=== PATIENT | male | born 1950 | race African-American/Black ===

== ENCOUNTER 2017-05-16 16:38 | Observation (INO) | payer BC, OTHER ==
[2017-05-16 17:23] VITALS: BMI 48.8
[2017-05-16] MEDS ORDERED: ONDANSETRON 4 MG/2 ML VIAL IVPB ONE (17:26)
[2017-05-16] MEDS ORDERED: morphine CARPU-JECT 4 MG/1 ML DISP.SYRIN IVPUSH ONE (17:26)
[2017-05-16] MEDS ORDERED: LACTATED RINGERS SOLUTION 1000 ML INFUS.BAG IV ONE (17:27)
[2017-05-16] MEDS ORDERED: MAG HYDROX/AL HYDROX/SIMETH 355 ML ORAL.SUSP PO ONE (17:28)
[2017-05-16] MEDS ORDERED: FAMOTIDINE 20 MG/50 ML IVPB 20 MG in PREMIX 50 IVPB ONE (17:28)
--- NOTE | 2017-05-16 17:28 | PDOC ---
History of Present Illness - General History Source: Patient Exam Limitations: No Limitations - History of Present Illness Travel History: Yes Initial Comments: 05/16/17 19:17 Patient is a 67 year old male with a significant past medical history of Afib, HTN, DM, substance abuse of heroin last use in 1970 and ETOH last use in 1995, who presents to the ED with complaints of vomiting that began this morning. Patient reports experiencing multiple episodes of vomiting that began this morning as well as associated intermittent diffuse abdominal pain, prompting him to come into the ED for further evaluation. He reports experiencing constipation that began 2 days ago (last time he passed gas was yesterday). Patient reports experiencing sob when lying flat, that he states is his baseline as well as bilateral leg swelling which is also chronic. Patient states going to [place] last october with similar symptoms and was diagnosed with diverticulitis. Denies chest pain, coughing. Denies diarrhea, dysuria, hematuria. Denies fevers , chills. Denies contact with sick individuals, out of state traveling. Denies trauma to affected area. Denies change in appetite, change in diet. Denies any other symptoms. Allergies: Penicillins Social history: Former smoker. Former alcohol use. Former heroin use. Surgical history: cholecystectomy PMD: Dr. Johnston <Danie Childers - Last Filed: 05/16/17 19:17> <Tamiko Meadows - Last Filed: 05/17/17 19:53> - General Chief Complaint: Pain, Acute Stated Complaint: PAIN Time Seen by Provider: 05/16/17 17:11 Past History - Past Medical History Cardiac Disorders: Yes (ATRIAL FIB) COPD: No Diabetes: Yes HTN: Yes - Surgical History Cardiac Surgery: (abalasion) Orthopedic Surgery: Yes (KNEE REPLACEMENT) - Suicide/Smoking/Psychosocial Hx Smoking History: Current every day smoker Have you smoked in the past 12 months: Yes Number of Cigarettes Smoked Daily: 10 Information on smoking cessation initiated: No 'Breaking Loose' booklet given: 11/02/15 Hx Alcohol Use: No Drug/Substance Use Hx: No Substance Use Type: None Hx Substance Use Treatment: Yes (PT IS TAKING SUBOXONE) <Danie Childers - Last Filed: 05/16/17 19:17> <Tamiko Meadows - Last Filed: 05/17/17 19:53> - Past Medical History Allergies/Adverse Reactions: Allergies Allergy/AdvReac Type Severity Reaction Status Date / Time Penicillins Allergy Mild Rash Verified 11/01/15 18:44 Home Medications: Ambulatory Orders Carvedilol [Coreg] 25 mg PO BID 07/03/14 Furosemide [Lasix -] 40 mg PO DAILY 07/03/14 Pioglitazone HCl/Metformin HCl [Pioglitazone-Metformin 15-500] 1 each PO BID 08/12 Pregabalin [Lyrica -] 75 mg PO DAILY PRN 07/03/14 Cholecalciferol (Vitamin D3) [Vitamin D3] 50,000 unit PO ASDIR 11/01/15 Lubiprostone [Amitiza] 24 mcg PO BID 11/01/15 Docusate Sodium [Colace -] 100 mg PO Q8H PRN #0 capsule 11/07/15 Polyethylene Glycol 3350 [Miralax 119 gm Btl -] 17 gm PO BID bottle 11/07/15 Review of Systems - Review of Systems Able to Perform ROS?: Yes Comments:: 05/16/17 19:17 CONSTITUTIONAL: No reported: Fever, Chills, Diaphoresis, Generalized Weakness, Malaise, Loss of Appetite HEENT: No reported: Rhinorrhea, Nasal Congestion, Throat Pain, Throat Swelling, Difficulty Swallowing, Mouth Swelling, Ear Pain, Eye Pain, Visual Changes CARDIOVASCULAR: No reported: Chest Pain, Syncope, Palpitations, Irregular Heart Rate, Lightheadedness, Peripheral Edema RESPIRATORY: +Sob No reported: Cough, Shortness of Breath, SOB with Exertion, Orthopnea, Wheezing , Stridor, Hemoptysis GASTROINTESTINAL: +Abdominal pain. +vomiting. +Constipation. No reported: Abdominal Distension,, Diarrhea, Melena, Hematochezia GENITOURINARY: No reported: Dysuria, Frequency, Urgency, Hesitancy, Flank Pain, Genital Pain MUSCULOSKELETAL: No reported: Myalgia, Arthralgia, Joint Swelling, Back pain, Neck Pain SKIN: No reported: Rash, Itching, Pallor HEMATOLOGIC/IMMUNOLOGIC: No reported: Easy Bleeding, Easy Bruising, Lymphadenopathy, Frequent infections ENDOCRINE: No reported: Unexplained Weight Gain, Unexplained Weight Loss, Heat Intolerance , Cold Intolerance NEUROLOGIC: No reported: Headache, Focal Weakness, Paresthesias, Vertigo, Lightheadedness, Unsteady Gait, Seizure, Mental Status Changes, Incontinence PSYCHIATRIC: No reported: Anxiety, Depression <Alvarado,Danie - Last Filed: 05/16/17 19:17> *Physical Exam - Vital Signs Last Vital Signs Temp Pulse Resp BP Pulse Ox 97.2 F L 86 16 126/63 99 05/16/17 17:00 05/16/17 17:00 05/16/17 17:00 05/16/17 17:00 05/16/17 17:00 - Physical Exam Comments: 05/16/17 19:17 GENERAL: +Morbidly obese. The patient is awake, alert, and fully oriented, Nontoxic - in no acute distress. HEAD: Normocephalic, atraumatic. EYES: extraocular movements intact, sclera anicteric, conjunctiva clear. ENT: Normal voice, Moist mucous membranes. NECK: Normal range of motion, No JVD LUNGS: Breath sounds equal, clear to auscultation bilaterally. No wheezes, no rhonchi, no rales. HEART: Regular rate and rhythm, normal S1 and S2 without murmur, rub or gallop. ABDOMEN: moderate focal tenderness to epigastrium with a mass palapble in midline Soft, normoactive bowel sounds. No guarding, no rebound. No CVA tenderness EXTREMITIES: Normal range of motion, No clubbing or cyanosis. chronic venous changes and b/l pitting edemam neg homans sign. NEUROLOGICAL: No facial asymmetry, Normal speech, PSYCH: Normal mood, normal affect. SKIN: Warm, Dry, normal turgor. <AlvaradoDanie - Last Filed: 05/16/17 19:17> - Vital Signs Last Vital Signs Temp Pulse Resp BP Pulse Ox 97.2 F L 86 16 126/63 99 05/16/17 17:00 05/16/17 17:00 05/16/17 17:00 05/16/17 17:00 05/16/17 17:00 <Tamiko Meadows - Last Filed: 05/17/17 19:53> Heart Score/ECG Review - ECG Impressions Comment:: 05/16/17 18:47 Twelve-lead EKG was performed and reviewed by me. There is normal sinus rhythm with a normal rate. Rate of 86 The axis is normal. The intervals are normal. There is normal R wave progression T wave inversion in lead 3 <Danie Childers - Last Filed: 05/16/17 19:17> ED Treatment Course - LABORATORY CBC & Chemistry Diagram: 05/16/17 17:45 05/16/17 17:45 <Danie Childers - Last Filed: 05/16/17 19:17> - LABORATORY CBC & Chemistry Diagram: 05/16/17 17:45 05/17/17 10:32 - ADDITIONAL ORDERS Additional order review: Laboratory Results 05/16/17 05/16/17 05/16/17 21:08 20:35 17:45 Sodium 137 Potassium 4.6 Chloride 101 Carbon Dioxide 29 Anion Gap 7 L BUN 15 D Creatinine 0.8 D Creat Clearance w eGFR > 60 Random Glucose 117 H D Calcium 8.2 L Total Bilirubin 0.9 D AST 72 H D ALT 47 D Alkaline Phosphatase 73 Creatine Kinase 250 Creatine Kinase Index 0.9 CK-MB (CK-2) 2.381 Troponin I 0.06 H D Total Protein 8.5 H Albumin 3.2 L Lipase 97 Urine Color Yellow Urine Appearance Clear Urine pH 8.0 D Ur Specific [place] 1.018 Urine Protein 2+ H Urine Glucose (UA) Negative Urine Ketones 1+ H Urine Blood Negative Urine Nitrite Negative Urine Bilirubin Negative Urine Urobilinogen 4.0 e.u/dl Ur Leukocyte Esterase Negative Urine WBC (Auto) 1 Urine RBC (Auto) 3 Ur Epithelial Cells Rare Urine Mucus Few 05/16/17 17:45 RBC 4.74 MCV 85.9 MCHC 32.6 RDW 13.8 MPV 10.0 D Neutrophils % 66.0 Lymphocytes % 26.2 D Monocytes % 6.9 Eosinophils % 0.1 Basophils % 0.8 - Medications Given in the ED: ED Medications Discontinued Medications Generic Name Dose Route Start Last Admin Trade Name Lucho PRN Reason Stop Dose Admin Acetaminophen 1,000 mg 05/16/17 20:46 05/16/17 20:58 Ofirmev Injection - IVPB 05/16/17 20:47 1,000 mg ONCE ONE Administration Al Hydroxide/Mg Hydroxide 30 ml 05/16/17 17:28 05/16/17 18:10 Mylanta Suspension - PO 05/16/17 17:29 30 ml ONCE ONE Administration Famotidine/Sodium Chloride 20 50 mls @ 100 mls/hr 05/16/17 17:28 05/16/17 18: 10 mg/ Miscellaneous IVPB 05/16/17 17:57 100 mls/hr ONCE ONE Administration Lactated Ringer's 1,000 ml 05/16/17 17:27 05/16/17 18:09 Lactated Ringers Solution IV 05/16/17 17:28 1,000 ml NOW ONE Administration Metoclopramide HCl 10 mg 05/16/17 20:25 05/16/17 20:41 Reglan Injection - IVPUSH 05/16/17 20:26 10 mg ONCE ONE Administration Midazolam HCl 2 mg 05/16/17 23:51 05/17/17 00:31 Versed - IVPUSH 05/16/17 23:52 2 mg ONCE ONE Administration Morphine Sulfate 4 mg 05/16/17 17:26 05/16/17 18:09 Morphine Injection - IVPUSH 05/16/17 17:27 4 mg ONCE ONE Administration Ondansetron HCl 4 mg 05/16/17 17:26 05/16/17 18:09 Zofran Injection IVPB 05/16/17 17:27 4 mg ONCE ONE Administration Pantoprazole Sodium 80 mg 05/16/17 20:24 05/16/17 20:41 Protonix Iv IVPUSH 05/16/17 20:25 80 mg ONCE ONE Administration <Tamiko Meadows - Last Filed: 05/17/17 19:53> Medical Decision Making - Medical Decision Making 05/16/17 17:25 67y M hx of morbid obesity, afib, dm, htn, substance abuse presents with abdmoinal pain. Pt notes that symptmos started this morning, vomiting that is clear in color without bilious/blood/coffee grounds, denies any fever/chills, diarrhea, dysuria. on exam the pt is actively vomiting, and appears uncomfortable he has mild tenderness on his abd that seems worse int he epigastrium, but due to his panus difficult to exactly localize his pain pt notes that he was dx with diverticulitis in october when he last had this pain. last BM 2 days ago, consider obstruction prior surgery of cholecystectomy ddx: gastritis, pancreatitits, acs, obstruciton A portion of this note was documented by scribe services under my direction. I have reviewed the details of the note, within reason, and agree with the documentation with the following case summary and management plan written by me 05/16/17 19:14 labs obtained unremarkble will obtain abd cT to r/o hernia case signed out to dr. meadows to fu with CT and reassess the pt <Danie Childers - Last Filed: 05/16/17 19:17> - Medical Decision Making 05/17/17 00:35 I received pt on signout. We added on cardiac enzymes on the patient, and he has a positive troponin. He will get ASA and we will admit him to tele unit. Pt will also get a repeat EKG. 05/17/17 01:47 2nd cardiac enzyme is epending. 2nd EKH is NSR; inferior flipped flat Ts. 05/17/17 01:55 Patient Name: MARIJA PAIGE THIS IS A PRELIMINARY REPORT FROM [facility] DATE OF SERVICE: 2017-05-17 00:14:46 IMAGES: [id number] EXAM: ABDOMEN \T\ PELVIS CT WITH VASCULAR CONTR HISTORY: Hernia COMPARISON: None. FINDINGS: Abdomen Liver: Normal Spleen: Normal Pancreas: Normal Gallbladder: Not seen Stomach: There is a lap band surrounding the proximal stomach Small bowel: Segment of proximal small bowel distended with dynamic fluid levels. There is a focal transition in the appearance and caliber of the small bowel associated with a paraumbilical midline ventral hernia (image 118). Large bowel: Normal Appendix: Normal Adrenals:There is a 2.0 x 1.1 cm indeterminate left adrenal mass Kidneys: Normal Vascular: Normal Lymphatic: Normal Peritoneal: No free peritoneal air or fluid Pelvis: Prostate: normal Rectum: Normal Bladder: Normal The inferior thorax: Normal General: Skeletal: Normal Abdominal wall: There is a midline periumbilical ventral hernia containing non- obstructed segment of small bowel. IMPRESSION: Small bowel obstruction associated with a paraumbilical hernia Indeterminate left adrenal mass likely reflects an adenoma. Confirmation of stability recommended. Lap band THIS DOCUMENT HAS BEEN ELECTRONICALLY SIGNED 05/17/17 02:09 2nd cardiac enzyme is normal 05/17/17 03:11 Pt will be admitted to the hospitalist for Obs and surgical evaluation. 05/17/17 19:50 I have returned for another shift, and patient is still in the ER. The decision was made by our surgical nurse practitioner to transfer the patient to [facility] to [facility] surgical services Dr. Andrea Mcpherson accepted the patient. I gave report to Dr. Lalito Lambert in the ER, as this will be an ER to ER transfer.[facility] is setting up transfer for the patient. <Tamiko Meadows - Last Filed: 05/17/17 19:53> *DC/Admit/Observation/Transfer <Danie Childers - Last Filed: 05/16/17 19:17> - Discharge Dispostion Admit: Yes <Tamiko Meadows - Last Filed: 05/17/17 19:53> Diagnosis at time of Disposition: Small bowel obstruction, Ventral hernia with bowel obstruction - Discharge Dispostion Condition at time of disposition: Guarded
[2017-05-16] MEDS ORDERED: MORPHINE SULFATE 10 MG/1 ML *VIAL ONE (17:57)
[2017-05-16] MEDS ORDERED: ONDANSETRON 4 MG/2 ML VIAL ONE (17:57)
[2017-05-16] MEDS ORDERED: FAMOTIDINE 20 MG/50 ML IVPB 20 MG/50 ML MG IVPB ONE (17:57)
[2017-05-16] MEDS ORDERED: MAG HYDROX/AL HYDROX/SIMETH 30 ML UNIT-DOSE CUP ONE (17:57)
[2017-05-16 17:58] LABS: BASO % 0.8 % (0-2.0); EOS % 0.1 % (0-4.5); HEMATOCRIT 40.7 % (35.4-49); HEMOGLOBIN 13.3 GM/dL (11.7-16.9); LYMPH % 26.2 % (8-40); MCHC 32.6 g/dl (32.0-35.9); MEAN CELL VOLUME 85.9 fl (80-96); MONO % 6.9 % (3.8-10.2); RBC 4.74 M/mm3 (4.00-5.60); RDW 13.8 % (11.9-15.9); WHITE BLOOD COUNT 3.6 K/mm3 (4.0-10.0)
[2017-05-16 18:32] LABS: PLATELET COUNT 121 K/MM3 (134-434); PLATELET ESTIMATE DECREASED
[2017-05-16 18:37] LABS: ALBUMIN 3.2 g/dl (3.4-5.0); ALK PHOS 73 U/L (45-117); ANION GAP 7 (8-16); BILIRUBIN,TOTAL 0.9 mg/dL (0.2-1.0); BLOOD UREA NITROGEN 15 mg/dL (7-18); CALCIUM 8.2 mg/dL (8.5-10.1); CHLORIDE 101 mmol/L (98-107); CO2 29 mmol/L (21-32); CREATININE 0.8 mg/dL (0.7-1.3); GLUCOSE,RANDOM 117 mg/dL (74-106); LIPASE 97 U/L (73-393); SGPT/ALT 47 U/L (12-78); SODIUM 137 mmol/L (136-145); TOT PROT 8.5 g/dl (6.4-8.2)
[2017-05-16 18:40] LABS: POTASSIUM 4.6 mmol/L (3.5-5.1); SGOT/AST 72 U/L (15-37)
[2017-05-16] MEDS ORDERED: PANTOPRAZOLE SODIUM 40 MG VIAL IVPUSH ONE (20:24)
[2017-05-16] MEDS ORDERED: METOCLOPRAMIDE HCL INJECTION 10 MG/2 ML VIAL IVPUSH ONE (20:25)
[2017-05-16] MEDS ORDERED: METOCLOPRAMIDE HCL INJECTION 10 MG/2 ML VIAL ONE (20:27)
[2017-05-16] MEDS ORDERED: PANTOPRAZOLE SODIUM 40 MG VIAL ONE (20:27)
[2017-05-16] MEDS ORDERED: ACETAMINOPHEN 1000 MG/100 ML VIAL (NON FORMULARY) IVPB ONE (20:46)
[2017-05-16 22:07] LABS: URINE APPEARANCE CLEAR; URINE BILIRUBIN NEGATIVE (NEGATIVE); URINE BLOOD NEGATIVE (NEGATIVE); URINE COLOR YELLOW; URINE GLUCOSE (UA) NEGATIVE (NEGATIVE); URINE KETONE 1+ (NEGATIVE); URINE LEUK ESTERASE NEGATIVE (NEGATIVE); URINE NITRITE NEGATIVE (NEGATIVE); URINE UROBILINOGEN 4.0 E.U/dl mg/dL (0.2-1.0)
[2017-05-16 22:10] LABS: EPI CELLS RARE /HPF (FEW); URINE MUCUS FEW; URINE PROTEIN 2+ (NEGATIVE)
[2017-05-16] MEDS ORDERED: MIDAZOLAM HCL 2 MG/2 ML SINGLE DOSE VIAL ONE (23:51)
[2017-05-16] MEDS ORDERED: MIDAZOLAM HCL 2 MG/2 ML SINGLE DOSE VIAL IVPUSH ONE (23:51)
[2017-05-17] MEDS ORDERED: ASPIRIN 81 MG CHEWABLE TABLETS PO ONE (00:33)
[2017-05-17] MEDS ORDERED: ASPIRIN 325 MG TABLET ONE (01:02)
[2017-05-17] MEDS ORDERED: POLYETHYLENE GLYCOL 3350 119 GM BTL PO ONE (02:59)
--- NOTE | 2017-05-17 05:55 | HP ---
CHIEF COMPLAINT: abdominal pain and vomiting PCP:Dr Mauricio HISTORY OF PRESENT ILLNESS: The patient is a 67 year old male with a significant past medical history of diverticulitis, A fib, HTN, DM, who presents to the ED with complaints of multiple episodes of vomiting that began in the morning. He states that it was non bloody, non bilious. He is also complaining of intermittent diffuse abdominal pain, and no BMs for 3 days, last time he passed gas was yesterday. Patient reports experiencing sob when lying flat, that he states is his baseline as well as bilateral leg swelling that is present for long time. The pt has a vhistory of diverticulitis last year. He denies chest pain, coughing, fever, chills. He denies diarrhea, melena, dysuria, hematuria, changing dietary habits. ER course was notable for: (1)CBC, BMP (2)CT abdomen/pelis (3) Recent Travel:no PAST MEDICAL HISTORY: as above PAST SURGICAL HISTORY: cholecystectomy, knee replacement Social History: Smoking:no, former smoker Alcohol:ETOH last use in 1995 Drugs: heroin last use in 1970 Family History: Allergies Penicillins Allergy (Mild, Verified 11/01/15 18:44) Rash HOME MEDICATIONS: Home Medications Medication Instructions Recorded Carvedilol [Coreg] 25 mg PO BID 07/03/14 Furosemide [Lasix -] 40 mg PO DAILY 07/03/14 Pioglitazone HCl/Metformin HCl 1 each PO BID 07/03/14 [Pioglitazone-Metformin 15-500] Pregabalin [Lyrica -] 75 mg PO DAILY PRN 07/03/14 Cholecalciferol (Vitamin D3) 50,000 unit PO ASDIR 11/01/15 [Vitamin D3] Lubiprostone [Amitiza] 24 mcg PO BID 11/01/15 Docusate Sodium [Colace -] 100 mg PO Q8H PRN #0 capsule 11/07/15 Polyethylene Glycol 3350 [Miralax 17 gm PO BID bottle 11/07/15 119 gm Btl -] REVIEW OF SYSTEMS CONSTITUTIONAL: Absent: fever, chills, diaphoresis, generalized weakness, malaise, loss of appetite, weight change HEENT: Absent: rhinorrhea, nasal congestion, throat pain, throat swelling, difficulty swallowing, mouth swelling, ear pain, eye pain, visual changes CARDIOVASCULAR: peripheral edema Absent: chest pain, syncope, palpitations, irregular heart rate, lightheadedness , RESPIRATORY: Absent: cough, shortness of breath, dyspnea with exertion, orthopnea, wheezing, stridor, hemoptysis GASTROINTESTINAL:abdominal pain, nausea, vomiting, Absent: abdominal distension, diarrhea, constipation, GENITOURINARY: Absent: dysuria, frequency, urgency, hesitancy, hematuria, MUSCULOSKELETAL: Absent: myalgia, arthralgia, joint swelling, back pain, neck pain SKIN: Absent: rash, itching, pallor ENDOCRINE: Absent: unexplained weight gain, unexplained weight loss, heat intolerance, cold intolerance NEUROLOGIC: Absent: headache, focal weakness or paresthesias, dizziness, unsteady gait, PSYCHIATRIC: Absent: anxiety, depression, suicidal or homicidal ideation, hallucinations. PHYSICAL EXAMINATION Vital Signs - 24 hr 05/16/17 17:00 Temperature 97.2 F L Pulse Rate 86 Respiratory 16 Rate Blood Pressure 126/63 O2 Sat by Pulse 99 Oximetry (%) GENERAL: Awake, alert, and fully oriented, in no acute distress, sitting in a chair. HEAD: Normal with no signs of trauma. EYES: Pupils equal, round and reactive to light, extraocular movements intact, sclera anicteric, conjunctiva clear. No lid lag. EARS, NOSE, THROAT: Ears normal, nares patent, oropharynx clear without exudates. Moist mucous membranes. NECK: Normal range of motion, supple without lymphadenopathy, JVD, or masses. LUNGS: Breath sounds equal, clear to auscultation bilaterally. No wheezes, and no crackles. No accessory muscle use. HEART: Regular rate and rhythm, normal S1 and S2 without murmur, rub or gallop. ABDOMEN: Obese, soft, mild diffuse tenderness, hypooactive bowel sounds, no guarding, no rebound, no masses. MUSCULOSKELETAL: Normal range of motion at all joints. No bony deformities or tenderness. UPPER EXTREMITIES: 2+ pulses, warm. No peripheral edema. LOWER EXTREMITIES: 2+ pulses, warm. 2+ peripheral edema. NEUROLOGICAL: Normal speech. Gait not observed. PSYCHIATRIC: Cooperative. Good eye contact. SKIN: Warm, dry, normal turgor, no rashes. Laboratory Results - last 24 hr 05/16/17 05/16/17 05/16/17 17:45 17:45 20:35 WBC 3.6 L D RBC 4.74 Hgb 13.3 Hct 40.7 MCV 85.9 MCH 28.0 MCHC 32.6 RDW 13.8 Plt Count 121 L MPV 10.0 D Neutrophils % 66.0 Lymphocytes % 26.2 D Monocytes % 6.9 Eosinophils % 0.1 Basophils % 0.8 Platelet Estimate Decreased Platelet Comment Rare giant plts Sodium 137 Potassium 4.6 Chloride 101 Carbon Dioxide 29 Anion Gap 7 L BUN 15 D Creatinine 0.8 D Creat Clearance w eGFR > 60 Random Glucose 117 H D Calcium 8.2 L Total Bilirubin 0.9 D AST 72 H D ALT 47 D Alkaline Phosphatase 73 Creatine Kinase 250 Creatine Kinase Index 0.9 CK-MB (CK-2) 2.381 Troponin I 0.06 H D Total Protein 8.5 H Albumin 3.2 L Lipase 97 Urine Color Urine Appearance Urine pH Ur Specific [place] Urine Protein Urine Glucose (UA) Urine Ketones Urine Blood Urine Nitrite Urine Bilirubin Urine Urobilinogen Ur Leukocyte Esterase Urine WBC (Auto) Urine RBC (Auto) Ur Epithelial Cells Urine Mucus 05/16/17 05/17/17 21:08 00:57 WBC RBC Hgb Hct MCV MCH MCHC RDW Plt Count MPV Neutrophils % Lymphocytes % Monocytes % Eosinophils % Basophils % Platelet Estimate Platelet Comment Sodium Potassium Chloride Carbon Dioxide Anion Gap BUN Creatinine Creat Clearance w eGFR Random Glucose Calcium Total Bilirubin AST ALT Alkaline Phosphatase Creatine Kinase 203 Creatine Kinase Index 1.4 CK-MB (CK-2) 2.893 Troponin I 0.04 D Total Protein Albumin Lipase Urine Color Yellow Urine Appearance Clear Urine pH 8.0 D Ur Specific [place] 1.018 Urine Protein 2+ H Urine Glucose (UA) Negative Urine Ketones 1+ H Urine Blood Negative Urine Nitrite Negative Urine Bilirubin Negative Urine Urobilinogen 4.0 e.u/dl Ur Leukocyte Esterase Negative Urine WBC (Auto) 1 Urine RBC (Auto) 3 Ur Epithelial Cells Rare Urine Mucus Few ASSESSMENT/PLAN: The patient is a 67 year old male with a significant past medical history of diverticulitis, A fib, HTN, DM, who presents to the ED with complaints of multiple episodes of vomiting that began in the morning. He is admitted for SBO. \ Abdominal pain and vomiting: -based on CT abdomen/pelvis he has SBO -will f/u surgery recommendations -type and screen coags -NPO -LR at rate 75 cc/hr DM: -BGM ACHS -ISS ACHS A.Fib: not on meds Edema: -continue Lasix HTN: -cont Coreg DVT PPX: Heparin 5000 u SQ ITD -SCDs F/E/N: LR/no changes/NPO Disposition: med surg Problem List - Problem (1) Small bowel obstruction Code(s): K56.609 - UNSP INTESTNL OBST, UNSP TO PARTIAL VERSUS COMPLETE OBST (2) Ventral hernia with bowel obstruction Code(s): K43.6 - OTHER AND UNSP VENTRAL HERNIA WITH OBSTRUCTION, W/O GANGRENE (3) Atrial fibrillation with tachycardic ventricular rate Code(s): I48.91 - UNSPECIFIED ATRIAL FIBRILLATION (4) Diabetes Code(s): E11.9 - TYPE 2 DIABETES MELLITUS WITHOUT COMPLICATIONS (5) HTN (hypertension) Code(s): I10 - ESSENTIAL (PRIMARY) HYPERTENSION (6) Morbid obesity Code(s): E66.01 - MORBID (SEVERE) OBESITY DUE TO EXCESS CALORIES (7) Opiate dependence Code(s): F11.20 - OPIOID DEPENDENCE, UNCOMPLICATED Visit type - Emergency Visit Emergency Visit: Yes ED Registration Date: 05/17/17 Care time: The patient presented to the Emergency Department on the above date and was hospitalized for further evaluation of their emergent condition. - New Patient This patient is new to me today: Yes Date on this admission: 05/17/17 - Critical Care Critical Care patient: No
[2017-05-17] MEDS ORDERED: HEPARIN NA (PORCINE) 5,000 UNITS/ML 1ML VIAL ONE (06:09)
--- NOTE | 2017-05-17 06:10 | PN ---
Teaching Attending Note Name of Resident: Eleanor Hanna ATTENDING PHYSICIAN STATEMENT I saw and evaluated the patient. Chart, data, imaging reviewed. I reviewed the resident's note and discussed the case with the resident. I agree with the resident's findings and plan as documented. SUBJECTIVE: 67 year old male with a significant past medical history of Afib, HTN, DM, diverticulitis last October, Hx of substance abuse with heroin , etoh in the past , presented with nausea, vomiting that began 05/16 in the morning. Patient c/o some mild abdominal pain as well. Last reported BM was 2 days ago and he passes gas 1 day ago. Treated for diverticulitis last october. CT of abdomen//pelvis showed mild small bowel obstruction. OBJECTIVE: Last Vital Signs Temp Pulse Resp BP Pulse Ox 97.2 F L 86 16 126/63 99 05/16/17 17:00 05/16/17 17:00 05/16/17 17:00 05/16/17 17:00 05/16/17 17:00 General -NAD, appears comfortable, morbidly obese HEENT- at, nc, oral mucosa moist neck -supple CV-s1+s2+ RRR Chest b/l air entry sounds Abdomen - morbidly obese, BS decreased skin- chronic venous stasis changes in lower extremities Abnormal Lab Results 05/16/17 05/16/17 05/16/17 17:45 17:45 20:35 WBC 3.6 L D Plt Count 121 L Anion Gap 7 L Random Glucose 117 H D Calcium 8.2 L AST 72 H D Troponin I 0.06 H D Total Protein 8.5 H Albumin 3.2 L Urine Protein Urine Ketones 05/16/17 21:08 WBC Plt Count Anion Gap Random Glucose Calcium AST Troponin I Total Protein Albumin Urine Protein 2+ H Urine Ketones 1+ H CT of abdomen/pelvis- mild small bowel obstruction with paraumbilical hernia ASSESSMENT AND PLAN: #Mild small bowel obstruction with paraumbilical hernia -no clinical evidence of acute abdomen. -admit to observation -IV fluid hydration -zofran PRN for nausea/vomiting -replace electrolytes prn -tylenol prn for pain control -surgery evaluation for possible intervention #DVT ppx -heparin sc
[2017-05-17] MEDS ORDERED: LACTATED RINGERS SOLUTION 1,000 ML/1,000 ML INFUS.BAG IV SCH (06:15)
[2017-05-17] MEDS: HEPARIN NA (PORCINE) 5,000 UNITS/ML 1ML VIAL SQ SCH ×2 (06:23→15:10)
[2017-05-17] MEDS: INSULIN SLIDING SCALE (NOVOLOG) 1 VIAL SQ SCH ×3 (07:00→17:15)
[2017-05-17] MEDS: CARVEDILOL 25 MG TABLET (FP) PO SCH ×2 (09:02→22:59)
[2017-05-17] MEDS ORDERED: FUROSEMIDE 40 MG TABLET (FP) PO SCH (10:00)
[2017-05-17 10:57] LABS: INR 1.18 (0.82-1.09); PROTHROMBIN TIME (PATIENT) 13.3 SEC (9.98-11.88)
[2017-05-17 11:00] LABS: ACTIVATED PTT 33.2 SECONDS (26.9-34.4)
[2017-05-17 11:16] LABS: ANION GAP 8 (8-16); BLOOD UREA NITROGEN 14 mg/dL (7-18); CALCIUM 8.3 mg/dL (8.5-10.1); CHLORIDE 100 mmol/L (98-107); CO2 28 mmol/L (21-32); CREATININE 0.9 mg/dL (0.7-1.3); GLUCOSE,RANDOM 114 mg/dL (74-106); MAGNESIUM 1.9 mg/dL (1.8-2.4); POTASSIUM 4.3 mmol/L (3.5-5.1); SGOT/AST 55 U/L (15-37); SGPT/ALT 43 U/L (12-78); SODIUM 136 mmol/L (136-145); TOT PROT 8.3 g/dl (6.4-8.2)
[2017-05-17 11:17] LABS: ALK PHOS 72 U/L (45-117)
--- NOTE | 2017-05-17 12:15 | EKG ---
Test Reason : Blood Pressure : / mmHG Vent. Rate : 096 BPM Atrial Rate : 096 BPM P-R Int : 172 ms QRS Dur : 094 ms QT Int : 364 ms P-R-T Axes : 068 -01 007 degrees QTc Int : 459 ms POOR DATA QUALITY, INTERPRETATION MAY BE ADVERSELY AFFECTED NORMAL SINUS RHYTHM MINIMAL VOLTAGE CRITERIA FOR LVH, MAY BE NORMAL VARIANT BORDERLINE ECG WHEN COMPARED WITH ECG OF 16-MAY-2017 17:50, NO SIGNIFICANT CHANGE WAS FOUND Confirmed by GIOVANNY PAN MD ([id number]) on 05/17/2017 12:15:21 PM Referred By: Confirmed By:GIOVANNY PAN MD
--- NOTE | 2017-05-17 12:15 | EKG ---
Test Reason : Blood Pressure : / mmHG Vent. Rate : 086 BPM Atrial Rate : 086 BPM P-R Int : 168 ms QRS Dur : 096 ms QT Int : 394 ms P-R-T Axes : 033 -06 003 degrees QTc Int : 471 ms NORMAL SINUS RHYTHM MINIMAL VOLTAGE CRITERIA FOR LVH, MAY BE NORMAL VARIANT BORDERLINE ECG WHEN COMPARED WITH ECG OF 02-NOV-2015 01:20, SINUS RHYTHM HAS REPLACED ATRIAL FLUTTER Confirmed by VIVIANE GONZALEZ, GIOVANNY ([id number]) on 05/17/2017 12:14:54 PM Referred By: Confirmed By:GIOVANNY PAN MD
[2017-05-17 14:56] LABS: COCAINE, UR NEGATIVE ng/ml (CUTOFF=300); METHADONE, UR NEGATIVE ng/ml (CUTOFF=300); OPIATES, URI NEGATIVE ng/ml (CUTOFF=300); PHENCYCLIDINE,URINE NEGATIVE ng/ml (CUTOFF=25); URINE AMPHETAMINES NEGATIVE ng/ml (CUTOFF=500); URINE BARBITURATES NEGATIVE ng/ml (CUTOFF=200); URINE BENZODIAZEPINES NEGATIVE ng/ml (CUTOFF=200)
--- NOTE | 2017-05-17 15:58 | CONSULT ---
Consult Consult Specialty:: General Surgery Referred by:: Dr. house Reason for Consultation:: abdominal pain - History of Present Illness Chief Complaint: Hernia with SBO History of Present Illness: 67yo male HTN, DM type 2, Morbid obesity s/p Lap band presented to the ED with abdominal pain and nausea. Has not had a normal bowel movement in 3 days. He is passing flatus. He has been having dry heaving with out significant emesis. Currently being evaluated at [facility] for Bariatic revision surgery. Laparoscopic band surgery in [place] 9 years ago. We were asked to assess. 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) - Smoking History Smoking history: Current every day smoker Have you smoked in the past 12 months: Yes Aproximately how many cigarettes per day: 10 - Social History ADL: Independent 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 [employer] History of Recent Travel: No Home Medications - Allergies Allergies/Adverse Reactions: Allergies Allergy/AdvReac Type Severity Reaction Status Date / Time Penicillins Allergy Mild Rash Verified 11/01/15 18:44 - Home Medications Home Medications: Ambulatory Orders Carvedilol [Coreg] 25 mg PO BID 07/03/14 Furosemide [Lasix -] 40 mg PO DAILY 07/03/14 Pioglitazone HCl/Metformin HCl [Pioglitazone-Metformin 15-500] 1 each PO BID 08/12 Pregabalin [Lyrica -] 75 mg PO DAILY PRN 07/03/14 Cholecalciferol (Vitamin D3) [Vitamin D3] 50,000 unit PO ASDIR 11/01/15 Lubiprostone [Amitiza] 24 mcg PO BID 11/01/15 Docusate Sodium [Colace -] 100 mg PO Q8H PRN #0 capsule 11/07/15 Polyethylene Glycol 3350 [Miralax 119 gm Btl -] 17 gm PO BID bottle 11/07/15 Review of Systems - Review of Systems Constitutional: denies: Chills, Fever Eyes: denies: Blurred Vision, Recent Change in Vision HENT: denies: Difficult Swallowing Neck: denies: Lumps, Tenderness Cardiovascular: denies: Chest Pain, Palpitations Respiratory: denies: Cough, SOB Gastrointestinal: reports: Abdominal Pain, Constipation, Vomiting Genitourinary: denies: Discharge, Dysuria, Flank Pain Musculoskeletal: reports: Back Pain. denies: Muscle Pain, Muscle Cramps Integumentary: denies: Lump, Rash Endocrine: reports: Unexplained Weight Gain. denies: Excessive Sweating, Increased Hunger Hematology/Lymphatic: denies: Easily Bruised, Excessive Bleeding Psychiatric: denies: Anxiety, Depression Physical Exam Vital Signs: Vital Signs Temperature 98 F 05/17/17 04:28 Pulse Rate 81 05/17/17 12:27 Respiratory Rate 19 05/17/17 04:28 Blood Pressure 131/72 05/17/17 12:27 O2 Sat by Pulse Oximetry (%) 97 05/17/17 12:27 Vital Signs Period Temp Pulse Resp BP Sys/Sr Pulse Ox Last 24 Hr 98 F 70-88 19 126-143/72-79 95-97 Constitutional: Yes: No Distress, Calm, Obese Eyes: Yes: Conjunctiva Clear, EOM Intact HENT: Yes: Atraumatic, Normocephalic Neck: Yes: Supple, Trachea Midline Cardiovascular: Yes: Regular Rate and Rhythm, S1, S2 Respiratory: Yes: Regular, CTA Bilaterally Gastrointestinal: Yes: Soft, Abdomen, Obese, Hernia (periumbilcal hernia incarcerted will not stay reduced), Hyperactive Bowel Sounds, Tenderness ( infraumbilical, lower midline). No: Tenderness, Epigastrium, Tenderness, Rebound ...Rectal Exam: Yes: Deferred Renal/: No: CVA Tenderness - Left, CVA Tenderness - Right Extremities: No: Cool, Cyanosis Integumentary: No: Jaundice, Rash Wound/Incision: Yes: Clean/Dry, Well Approximated Neurological: Yes: Alert, Oriented Psychiatric: Yes: Alert, Oriented Labs: CBC, BMP 05/16/17 17:45 05/17/17 10:32 Imaging - Results Cat Scan: Report Reviewed, Image Reviewed (incarcerate umbilical port site hernia with small bowel) Problem List - Problems (1) Ventral hernia with bowel obstruction Assessment/Plan: 67yo male with MMP Morbid obesity BMI~50 s/p lap band 9 years ago. Now with an Incarcerated umbilical hernia port site with small bowel obstruction seen on CT scan. no peritoneal signs. WBC 3.6, lactic acid pending. NPO and IVF hydration Empiric IV antibiotics Adequate analgesia Transfer to a center with bariatric surgeon Dr. La preferably [facility] is accepting Thank you for the opportunity to participate in the care of this patient. Code(s): K43.6 - OTHER AND UNSP VENTRAL HERNIA WITH OBSTRUCTION, W/O GANGRENE (2) Small bowel obstruction Code(s): K56.609 - UNSP INTESTNL OBST, UNSP TO PARTIAL VERSUS COMPLETE OBST (3) Diabetes Code(s): E11.9 - TYPE 2 DIABETES MELLITUS WITHOUT COMPLICATIONS (4) HTN (hypertension) Code(s): I10 - ESSENTIAL (PRIMARY) HYPERTENSION (5) Morbid obesity Code(s): E66.01 - MORBID (SEVERE) OBESITY DUE TO EXCESS CALORIES
[2017-05-17] MEDS ORDERED: ACETAMINOPHEN 1000 MG/100 ML VIAL (NON FORMULARY) IVPB ONE (16:49)
[2017-05-17] MEDS ORDERED: ACETAMINOPHEN INJECTION 100 ML IVPB ONE (17:06)
[2017-05-17] MEDS ORDERED: MORPHINE SULFATE 10 MG/1 ML *VIAL ONE ×2 (17:36→23:04)
[2017-05-17] MEDS ORDERED: FAMOTIDINE 20 MG/50 ML IVPB 20 MG/50 ML MG IVPB ONE (17:37)
[2017-05-17] MEDS ORDERED: morphine CARPU-JECT 2 MG/1 ML DISP.SYRIN IVPUSH ONE ×2 (18:01→23:11)
[2017-05-17] MEDS ORDERED: FAMOTIDINE IV 20 MG/12 ML VIAL IVPUSH ONE ×2 (18:01→18:03)
[2017-05-17 20:29] VITALS: BP 146/80; PULSE 80; TEMP 97.5
--- NOTE | 2017-05-17 22:22 | HOSP ---
Subjective - Review of Symptoms Events since last encounter: Patient is seen and examined, discussed with the surgeon and arrangement are made to Transfer the patient to [facility], Patient is accepted by . Patient is NPO since was found to have SBO with incarcerated Hernia. is consulted , agrees with the transfer, who discussed with the surgeon at [facility]. Vital Signs Temperature 97.5 F L 05/17/17 20:27 Pulse Rate 80 05/17/17 20:27 Respiratory Rate 20 05/17/17 20:27 Blood Pressure 146/80 05/17/17 20:27 O2 Sat by Pulse Oximetry (%) 95 05/17/17 16:27 CBCD WBC 3.6 K/mm3 (4.0-10.0) L D 05/16/17 17:45 RBC 4.74 M/mm3 (4.00-5.60) 05/16/17 17:45 Hgb 13.3 GM/dL (11.7-16.9) 05/16/17 17:45 Hct 40.7 % (35.4-49) 05/16/17 17:45 MCV 85.9 fl (80-96) 05/16/17 17:45 MCHC 32.6 g/dl (32.0-35.9) 05/16/17 17:45 RDW 13.8 % (11.9-15.9) 05/16/17 17:45 Plt Count 121 K/MM3 (134-434) L 05/16/17 17:45 MPV 10.0 fl (7.5-11.1) D 05/16/17 17:45 CMP Sodium 136 mmol/L (136-145) 05/17/17 10:32 Potassium 4.3 mmol/L (3.5-5.1) 05/17/17 10:32 Chloride 100 mmol/L (98-107) 05/17/17 10:32 Carbon Dioxide 28 mmol/L (21-32) 05/17/17 10:32 Anion Gap 8 (8-16) 05/17/17 10:32 BUN 14 mg/dL (7-18) 05/17/17 10:32 Creatinine 0.9 mg/dL (0.7-1.3) 05/17/17 10:32 Creat Clearance w eGFR > 60 (>60) 05/17/17 10:32 Random Glucose 114 mg/dL (74-106) H 05/17/17 10:32 Calcium 8.3 mg/dL (8.5-10.1) L 05/17/17 10:32 Total Bilirubin 1.0 mg/dL (0.2-1.0) 05/17/17 10:32 AST 55 U/L (15-37) H D 05/17/17 10:32 ALT 43 U/L (12-78) 05/17/17 10:32 Alkaline Phosphatase 72 U/L (45-117) 05/17/17 10:32 Total Protein 8.3 g/dl (6.4-8.2) H 05/17/17 10:32 Albumin 3.0 g/dl (3.4-5.0) L 05/17/17 10:32 CARDIAC ENZYMES Creatine Kinase 203 IU/L (39-308) 05/17/17 00:57 Troponin I 0.04 ng/ml (0.00-0.05) D 05/17/17 00:57 Current Medications Generic Name Dose Route Start Last Admin Trade Name Freq PRN Reason Stop Dose Admin Carvedilol 25 mg 05/17/17 10:00 05/17/17 09:02 Coreg - PO 25 mg BID MIGUEL ÁNGEL Administration Furosemide 40 mg 05/17/17 10:00 05/17/17 09:02 Lasix - PO 40 mg DAILY MIGUEL ÁNGEL Administration Heparin Sodium (Porcine) 5,000 unit 05/17/17 06:15 05/17/17 15:10 Heparin - SQ 5,000 unit TID MIGUEL ÁNGEL Administration Lactated Ringer's 1,000 ml in 1,000 mls @ 75 mls/hr 05/17/17 06:15 05/17/17 06:23 Lactated Ringers Solution IV 75 mls/hr ASDIR MIGUEL ÁNGEL Administration Insulin Aspart 1 vial 05/17/17 07:00 05/17/17 17:15 Novolog Vial Sliding Scale - SQ Not Given ACHS [facility] Protocol Home Medications Medication Instructions Recorded Carvedilol [Coreg] 25 mg PO BID 07/03/14 Furosemide [Lasix -] 40 mg PO DAILY 07/03/14 Pioglitazone HCl/Metformin HCl 1 each PO BID 07/03/14 [Pioglitazone-Metformin 15-500] Pregabalin [Lyrica -] 75 mg PO DAILY PRN 07/03/14 Cholecalciferol (Vitamin D3) 50,000 unit PO ASDIR 11/01/15 [Vitamin D3] Lubiprostone [Amitiza] 24 mcg PO BID 11/01/15 Docusate Sodium [Colace -] 100 mg PO Q8H PRN #0 capsule 11/07/15 Polyethylene Glycol 3350 [Miralax 17 gm PO BID bottle 11/07/15 119 gm Btl -] Physical Examination Vital Signs: Vital Signs Temperature 97.5 F L 05/17/17 20:27 Pulse Rate 80 05/17/17 20:27 Respiratory Rate 20 05/17/17 20:27 Blood Pressure 146/80 05/17/17 20:27 O2 Sat by Pulse Oximetry (%) 95 05/17/17 16:27 Labs: CBC, BMP 05/16/17 17:45 05/17/17 10:32
--- NOTE | 2017-05-18 07:51 | DS ---
Physical Exam: SUBJECTIVE: Patient seen and examined Patient is c/o having an abdominal pain, asking for pain medications. OBJECTIVE: Vital Signs Period Temp Pulse Resp BP Sys/Sr Pulse Ox Last 24 Hr 97.5 F 70-88 20 131-146/72-80 95-97 PHYSICAL EXAM GENERAL: The patient is awake, alert, and fully oriented, in mild distress. sitting on the wheelchair. HEAD: Normal with no signs of trauma. EYES: PERRL, extraocular movements intact, sclera anicteric, conjunctiva clear. ENT: Ears normal, oropharynx clear without exudates, moist mucous membranes. NECK: Trachea midline, full range of motion, supple. LUNGS: Breath sounds equal, clear to auscultation bilaterally, no wheezes, no crackles, no accessory muscle use. HEART: Regular rate and rhythm, S1, S2 without murmur, rub or gallop. ABDOMEN: distended , with morbid obesity . BS positive EXTREMITIES: 2+ pulses, warm, well-perfused, no edema. NEUROLOGICAL: Cranial nerves II through XII grossly intact. Normal speech, gait is steady PSYCH: Normal mood, normal affect. SKIN: Warm, dry, normal turgor, no rashes or lesions noted. LABS Laboratory Results - last 24 hr 05/17/17 05/17/17 05/17/17 10:32 10:32 10:32 PT with INR 13.30 H INR 1.18 H D PTT (Actin FS) 33.2 Sodium 136 Potassium 4.3 Chloride 100 Carbon Dioxide 28 Anion Gap 8 BUN 14 Creatinine 0.9 Creat Clearance w eGFR > 60 POC Glucometer Random Glucose 114 H Calcium 8.3 L Magnesium 1.9 Total Bilirubin 1.0 AST 55 H D ALT 43 Alkaline Phosphatase 72 Total Protein 8.3 H Albumin 3.0 L Lipase 78 Opiates Screen Methadone Screen Barbiturate Screen Phencyclidine Screen Ur Amphetamines Screen MDMA (Ecstasy) Screen Benzodiazepines Screen Cocaine Screen U Marijuana (THC) Screen 05/17/17 05/17/17 05/17/17 11:06 12:55 17:13 PT with INR INR PTT (Actin FS) Sodium Potassium Chloride Carbon Dioxide Anion Gap BUN Creatinine Creat Clearance w eGFR POC Glucometer 140.94814 85.79726 Random Glucose Calcium Magnesium Total Bilirubin AST ALT Alkaline Phosphatase Total Protein Albumin Lipase Opiates Screen Negative Methadone Screen Negative Barbiturate Screen Negative Phencyclidine Screen Negative Ur Amphetamines Screen Negative MDMA (Ecstasy) Screen Negative Benzodiazepines Screen Negative Cocaine Screen Negative U Marijuana (THC) Screen Negative Home Medications Medication Instructions Recorded Carvedilol [Coreg] 25 mg PO BID 07/03/14 Furosemide [Lasix -] 40 mg PO DAILY 07/03/14 Pioglitazone HCl/Metformin HCl 1 each PO BID 07/03/14 [Pioglitazone-Metformin 15-500] Pregabalin [Lyrica -] 75 mg PO DAILY PRN 07/03/14 Cholecalciferol (Vitamin D3) 50,000 unit PO ASDIR 11/01/15 [Vitamin D3] Lubiprostone [Amitiza] 24 mcg PO BID 11/01/15 Docusate Sodium [Colace -] 100 mg PO Q8H PRN #0 capsule 11/07/15 Polyethylene Glycol 3350 [Miralax 17 gm PO BID bottle 11/07/15 119 gm Btl -] Cat Scan: Report Reviewed, Image Reviewed (incarcerate umbilical port site hernia with small bowel) HOSPITAL COURSE: Date of Admission:05/17/17 Date of Discharge: 05/18/17 Patient is a 67yo male with Morbid obesity BMI~50 s/p lap band 9 years ago with PMHx of SBO, presented with an Incarcerated umbilical hernia port site with small bowel obstruction seen on CT scan. no peritoneal signs. WBC 3.6, lactic acid pending. # Ventral hernia with bowel obstruction; NPO and IVF hydration, Empiric IV antibiotics , Pain medications , Patient is being transferred to a center with bariatric surgeon Dr. La accepted the patient, at [facility]. Patient has been in their program for 6 months. # Small bowel obstruction # Diabetes on Sliding scale # HTN continue Coreg and LAsix # Morbid obesity patient is on Bariatric program. time spend 45 minutes, time spent talking to the The surgeons, nurses. Minutes to complete discharge: 45 Discharge Summary Reason For Visit: SMALL BOWEL OBSTRUCTION Condition: Guarded - Instructions Referrals: Alberto Mauricio [Primary Care Provider] - Disposition: HOME - Home Medications Comprehensive Discharge Medication List: Ambulatory Orders Carvedilol [Coreg] 25 mg PO BID 07/03/14 Furosemide [Lasix -] 40 mg PO DAILY 07/03/14 Pioglitazone HCl/Metformin HCl [Pioglitazone-Metformin 15-500] 1 each PO BID 08/12 Pregabalin [Lyrica -] 75 mg PO DAILY PRN 07/03/14 Cholecalciferol (Vitamin D3) [Vitamin D3] 50,000 unit PO ASDIR 11/01/15 Lubiprostone [Amitiza] 24 mcg PO BID 11/01/15 Docusate Sodium [Colace -] 100 mg PO Q8H PRN #0 capsule 11/07/15 Polyethylene Glycol 3350 [Miralax 119 gm Btl -] 17 gm PO BID bottle 11/07/15 This patient is new to me today: Yes Date on this admission: 05/17/17 Emergency Visit: Yes ED Registration Date: 05/17/17 Care time: The patient presented to the Emergency Department on the above date and was hospitalized for further evaluation of their emergent condition. Critical Care patient: No - Discharge Referral Referred to [facility] Med P.C.: No
== END 2017-05-17 23:41 | disposition short-term general hospital (02) ==
LOC: JER 16:38 → JERBED 05-17 03:10
PROVIDERS: ADMIT Internal Medicine; ATTEND Internal Medicine
PROC: 3E033NZ Introduction of Analgesics, Hypnotics, Sedatives into Peripheral Vein, Percutaneous Approach (ICD-10-PCS; principal; 2017-05-17)
PROC: 3E033GC Introduction of Other Therapeutic Substance into Peripheral Vein, Percutaneous Approach (ICD-10-PCS; 2017-05-17)
PROC: 3E0337Z Introduction of Electrolytic and Water Balance Substance into Peripheral Vein, Percutaneous Approach (ICD-10-PCS; 2017-05-17)
PROC: 3E013GC Introduction of Other Therapeutic Substance into Subcutaneous Tissue, Percutaneous Approach (ICD-10-PCS; 2017-05-17)
DX: K43.6 Other and unspecified ventral hernia with obstruction, without gangrene (principal); R60.9 Edema, unspecified; I10 Essential (primary) hypertension; E11.9 Type 2 diabetes mellitus without complications; I48.91 Unspecified atrial fibrillation; F17.210 Nicotine dependence, cigarettes, uncomplicated; E66.01 Morbid (severe) obesity due to excess calories; Z98.84 Bariatric surgery status; Z68.42 Body mass index [BMI] 45.0-49.9, adult; Z88.0 Allergy status to penicillin; Z86.59 Personal history of other mental and behavioral disorders
CPT/HCPCS: 36415; 74177-TC; 80053; 80307; 81003; 81015; 82550; 82553; 82962; 83690; 83735; 84484; 85025; 85610; 85730; 87086; 93005; 93010; 96365; 96372; 96375; 96376; 99285-25; G0378; J1644

== ENCOUNTER 2017-12-28 08:36 | Observation (INO) | payer OTHER ==
--- NOTE | 2017-12-28 08:48 | PDOC ---
History of Present Illness - General Chief Complaint: Pain Stated Complaint: ABDOMINAL PAIN Time Seen by Provider: 12/28/17 08:47 - History of Present Illness Initial Comments: 67 year old male with afib (on coreg, no AC), diverticulitis (1 year prior, non surgical), cholecysitis (6 years prior, s/p cholecystectomy), chronic constipation, and 6 months s/p hernia repair with mesh presenting with 1.5 days of nausea, vomiting, and abdominal pain. States that he has been constipated for the past three days which is not unusual for him. He attempted to "move his bowels" by eating [place] burgers and a milkshake which typically helps him achieve relief. He was able to defecate but had severe abdominal pain afterwards along 3with vomiting since. The vomit is NBNB and he denies any blood in his stool. His last BM was this AM and he is passing gas. States he had some subjective warmth this morning as well. Denies any chest pain, SOB, diaphoresis, or other symptoms. 12/28/17 10:56 Past History - Past Medical History Allergies/Adverse Reactions: Allergies Allergy/AdvReac Type Severity Reaction Status Date / Time Penicillins Allergy Mild Rash Verified 12/28/17 08:45 Home Medications: Ambulatory Orders Carvedilol [Coreg] 25 mg PO BID 07/03/14 Furosemide [Lasix -] 40 mg PO DAILY 07/03/14 Pioglitazone HCl/Metformin HCl [Pioglitazone-Metformin 15-500] 1 each PO BID 08/12 Pregabalin [Lyrica -] 75 mg PO DAILY PRN 07/03/14 Cholecalciferol (Vitamin D3) [Vitamin D3] 50,000 unit PO ASDIR 11/01/15 Docusate Sodium [Colace -] 100 mg PO Q8H PRN #0 capsule 11/07/15 Polyethylene Glycol 3350 [Miralax 119 gm Btl -] 17 gm PO BID bottle 11/07/15 Cardiac Disorders: Yes (ATRIAL FIB) COPD: No Diabetes: Yes HTN: Yes - Surgical History Cardiac Surgery: (abalasion) Orthopedic Surgery: Yes (KNEE REPLACEMENT) - Immunization History Immunization Up to Date: No - Suicide/Smoking/Psychosocial Hx Smoking History: Current every day smoker Have you smoked in the past 12 months: Yes Number of Cigarettes Smoked Daily: 10 'Breaking Loose' booklet given: 11/02/15 Hx Alcohol Use: No Drug/Substance Use Hx: No Substance Use Type: None Hx Substance Use Treatment: Yes (PT IS TAKING SUBOXONE) Review of Systems - Review of Systems Constitutional: No: Chills, Diaphoresis, Fever HEENTM: No: Blurred Vision, Recent change in vision, Nose Congestion Respiratory: No: Cough, Shortness of Breath, Wheezing Cardiac (ROS): No: Chest Pain, Edema, Lightheadedness ABD/GI: Yes: Abdominal Distended, Nausea, Vomiting. No: Diarrhea : No: Burning, Dysuria, Discharge Musculoskeletal: Yes: Joint Pain, Muscle Pain. No: Back Pain, Muscle Weakness Integumentary: No: Bruising, Flushing, Lesions, Lumps Neurological: No: Headache, Numbness, Paresthesia Psychiatric: No: Anxiety, Depression Hematologic/Lymphatic: No: Anemia, Blood Clots, Easy Bleeding *Physical Exam - Physical Exam General Appearance: Yes: Nourished, Appropriately Dressed. No: Apparent Distress HEENT: positive: EOMI, HARINDER, Normal ENT Inspection, Normal Voice Neck: positive: Trachea midline, Normal Thyroid, Supple. negative: Tender, Rigid Respiratory/Chest: positive: Lungs Clear. negative: Chest Tender, Normal Breath Sounds (distant lung sounds), Respiratory Distress, Accessory Muscle Use Cardiovascular: positive: Regular Rhythm, Regular Rate Gastrointestinal/Abdominal: positive: Normal Bowel Sounds, Tender, Soft, Distended, Tenderness (diffusely tender). negative: Flat Lymphatic: negative: Adenopathy, Tenderness Musculoskeletal: positive: Normal Inspection. negative: Decreased Range of Motion Extremity: positive: Normal Range of Motion, Swelling (3+ bilateral pitting edema to lower thigh, multiple furuncles on bl lower extremities). negative: Normal Capillary Refill, Normal Inspection, Tender Integumentary: positive: Normal Color, Dry, Warm, Swelling Neurologic: positive: Fully Oriented, Alert, Normal Mood/Affect, Normal Response , Motor Strength 5/5 ED Treatment Course - LABORATORY CBC & Chemistry Diagram: 12/28/17 10:00 12/28/17 10:00 Medical Decision Making - Medical Decision Making 67 year old with multiple abdominal surgeries and and severe obesity presenting with diffuse abdominal pain, nausea, and vomiting. Labs showing elevated Troponin to 0.[address]iculitis on CT abdomen pelvis. EKG unconcerning with rate 68, TX 156, QRS 92, [id number], and normal xis without ST-or T wave changes. I suspect that the troponin elevation is due to demand ischemia. Patient covered wit Cirpo/ Flagyl for his suspected diverticulitis given his penicillin allergy. Patient signed out to Dr. Brennan in stable condition. 12/28/17 14:19 *DC/Admit/Observation/Transfer Diagnosis at time of Disposition: Diverticulitis, Elevated troponin I level, Intractable abdominal pain - Discharge Dispostion Condition at time of disposition: Stable Decision to Admit order: Yes - Referrals Referrals: Alberto Mauricio [Primary Care Provider] - - Patient Instructions - Post Discharge Activity
[2017-12-28 08:49] VITALS: BMI 51.6
--- NOTE | 2017-12-28 09:14 | PDOC ---
Attending Attestation - Resident Resident Name: GucciJuan - ED Attending Attestation I have performed the following: I have examined & evaluated the patient, The case was reviewed & discussed with the resident, I agree w/resident's findings & plan, Exceptions are as noted - HPI HPI: 12/28/17 09:14 67 year old male with past medical history of cholecystectomy, hernia repair, diverticulitis, hypertension, diabetes, atrial fibrillation presents with abdominal pain For 2 days. Patient reports diffuse abdominal pain and multiple episodes of nausea vomiting. Has a history of constipation. Denies diarrhea. Unsure if he has fevers. Denies dysuria. - Physicial Exam PE: 12/28/17 09:30 GENERAL: Awake, alert, and fully oriented, in no acute distress HEAD: No signs of trauma EYES: EOMI, sclera anicteric, conjunctiva clear ENT: Auricles normal inspection, hearing grossly normal, nares patent, Moist mucosa NECK: Normal ROM, supple ABDOMEN: Soft, No guarding, no rebound. No masses. +distended. Diffuse abdominal tenderness. EXTREMITIES: Normal range of motion, no edema. No clubbing or cyanosis. No cords, erythema, or tenderness NEUROLOGICAL: Cranial nerves II through XII grossly intact. Normal speech, normal gait SKIN: Warm, Dry, normal turgor, no rashes or lesions noted. - Medical Decision Making 12/28/17 09:33 Vital Signs Temp Pulse Resp BP Pulse Ox 97.7 F 83 20 118/53 L 100 12/28/17 08:46 12/28/17 08:46 12/28/17 08:46 12/28/17 08:46 12/28/17 08:46 67-year-old male presents with diffuse abdominal pain. Differential includes bowel obstruction, diverticulitis, pancreatitis, colitis, appendicitis. We'll obtain labs, and a CAT scan the abdomen pelvis. Reassess. 12/28/17 14:04 CBC, BMP 12/28/17 10:00 12/28/17 10:00 CMP Sodium 139 mmol/L (136-145) 12/28/17 10:00 Potassium 3.9 mmol/L (3.5-5.1) 12/28/17 10:00 Chloride 104 mmol/L (98-107) 12/28/17 10:00 Carbon Dioxide 27 mmol/L (21-32) 12/28/17 10:00 Anion Gap 8 MMOL/L (8-16) 12/28/17 10:00 BUN 11 mg/dL (7-18) 12/28/17 10:00 Creatinine 0.8 mg/dL (0.55-1.3) 12/28/17 10:00 Creat Clearance w eGFR > 60 (>60) 12/28/17 10:00 Random Glucose 152 mg/dL (74-106) H 12/28/17 10:00 Calcium 8.9 mg/dL (8.5-10.1) 12/28/17 10:00 Phosphorus 2.2 mg/dL (2.5-4.9) L 12/28/17 10:00 Magnesium 1.6 mg/dL (1.8-2.4) L 12/28/17 10:00 Total Bilirubin 0.8 mg/dL (0.2-1) 12/28/17 10:00 AST 63 U/L (15-37) H 12/28/17 10:00 ALT 37 U/L (13-61) 12/28/17 10:00 Alkaline Phosphatase 87 U/L (45-117) 12/28/17 10:00 Creatine Kinase 235 IU/L (26-308) 12/28/17 10:00 Creatine Kinase Index 0.8 % (0.0-5.0) 12/28/17 10:00 CK-MB (CK-2) 2.0 ng/mL (0.5-3.6) 12/28/17 10:00 Troponin I 0.07 ng/ml (0.00-0.05) H 12/28/17 10:00 Total Protein 9.1 g/dl (6.4-8.2) H 12/28/17 10:00 Albumin 3.1 g/dl (3.4-5.0) L 12/28/17 10:00 Lipase 84 U/L (73-393) 12/28/17 10:00 CAT scan demonstrates possible chronic type diverticulitis. Was also noted ventral hernia. The patient is noted to have a CAT scan with chronic diverticulitis. However, this is chronic and is unclear if this is truly the case. Given the symptoms, we 'll initiate IV antibiotic. Patient has been unable to tolerate by mouth. I suspect the troponin is 0.07 secondary to demand ischemia. We'll trend her troponins. I have less suspicion for acute coronary syndrome at this time. However, we'll observe. Admit. Heart Score/ECG Review #1 ECG reviewed & interpreted by me at: 09:30 12/28/17 10:43 NSR 68, occasional PAC, no std/mikel, normal axis, normal intervals, TWI III, QTC 433 msec
[2017-12-28] MEDS ORDERED: ONDANSETRON 4 MG/2 ML VIAL IVPUSH ONE ×3 (09:24→11:02)
[2017-12-28] MEDS ORDERED: morphine CARPU-JECT 4 MG/1 ML DISP.SYRIN IVPUSH ONE ×3 (09:27→11:19)
[2017-12-28] MEDS ORDERED: ONDANSETRON *ODT* 4 MG TABLET SL ONE (09:44)
[2017-12-28] MEDS ORDERED: ONDANSETRON *ODT* 4 MG TABLET ONE (09:44)
[2017-12-28] MEDS ORDERED: ONDANSETRON 4 MG/2 ML VIAL ONE ×2 (10:02→11:06)
[2017-12-28] MEDS ORDERED: morphine SULFATE 4 MG/ML VIAL ONE ×3 (10:02→11:39)
[2017-12-28 10:12] LABS: BASO % 0.4 % (0-2.0); EOS % 0.2 % (0-4.5); HEMOGLOBIN 12.6 GM/dL (11.7-16.9); LYMPH % 19.3 % (8-40); MCH 27.8 pg (25.7-33.7); MCHC 32.3 g/dl (32.0-35.9); MEAN PLT VOLUME 9.3 fl (7.5-11.1); MONO % 5.7 % (3.8-10.2); NEUT % 74.4 % (42.8-82.8); PLATELET COUNT 108 K/MM3 (134-434); RBC 4.54 M/mm3 (4.00-5.60); RDW 15.2 % (11.9-15.9); WHITE BLOOD COUNT 4.8 K/mm3 (4.0-10.0)
[2017-12-28 10:24] LABS: INR 1.13 (0.83-1.09); PROTHROMBIN TIME (PATIENT) 13.3 SEC (9.7-13.0)
[2017-12-28 10:27] LABS: ACTIVATED PTT 31.9 SECONDS (25.2-36.5)
[2017-12-28 10:44] LABS: ALBUMIN 3.1 g/dl (3.4-5.0); ALK PHOS 87 U/L (45-117); ANION GAP 8 MMOL/L (8-16); BILIRUBIN,TOTAL 0.8 mg/dL (0.2-1); BLOOD UREA NITROGEN 11 mg/dL (7-18); CALCIUM 8.9 mg/dL (8.5-10.1); CHLORIDE 104 mmol/L (98-107); CO2 27 mmol/L (21-32); CREATININE 0.8 mg/dL (0.55-1.3); GLUCOSE,RANDOM 152 mg/dL (74-106); LIPASE 84 U/L (73-393); MAGNESIUM 1.6 mg/dL (1.8-2.4); PHOSPHOROUS 2.2 mg/dL (2.5-4.9); POTASSIUM 3.9 mmol/L (3.5-5.1); SGOT/AST 63 U/L (15-37); SGPT/ALT 37 U/L (13-61); SODIUM 139 mmol/L (136-145); TOT PROT 9.1 g/dl (6.4-8.2)
[2017-12-28] MEDS ORDERED: MAGNESIUM SULF 50% (8.12 MEQ/2 ML-1 GM VIAL) IVPB ONE (11:01)
[2017-12-28] MEDS ORDERED: MAGNESIUM SULF 50% (8.12 MEQ/2 ML-1 GM VIAL) ONE (11:05)
[2017-12-28] MEDS ORDERED: SODIUM CHLORIDE 0.9% 500 ML INFUS.BAG IV ONE (11:40)
[2017-12-28] MEDS ORDERED: LORazepam 2 MG/ML SDV VIAL ONE (11:48)
[2017-12-28] MEDS ORDERED: CIPROFLOXACIN 400 MG/D5W 400 MG/200 ML IVPB IVPB ONE (14:08)
--- NOTE | 2017-12-28 14:34 | HP ---
CHIEF COMPLAINT: Abdominal pain, nausea and vomiting x 2 days PCP: Dr Mauricio HISTORY OF PRESENT ILLNESS: 67 yo M with PMHx of afib (s/p ablation 2 years ago, on coreg, no AC), diverticulitis (1 year prior, non surgical), cholecystitis (6 years prior, s/p cholecystectomy), chronic constipation ventral hernia repair (may 2017), hypertension, diabetes, presenting with abdominal pain for 2 days. Patient reports diffuse 8/10 constant and sharp abdominal pain and multiple episodes of nausea and vomiting Of clear NBNB vomit. Has a history of chronic constipation ( usually moves bowel weekly),last bowel movement this am of formed brown stool. Two days ago, pt ate [employer] burgers and a milkshake which typically helps him pass stool, and had one loose bowel movement on Friday and one formed daily on fri and friday. He subsequently had severe abdominal pain with vomiting since. No diarrhea, no bloody stools or melena. Pt reports chills, nasal congestion and myalgias but no sorethroat or cough. Is chronically SOB since ablation 2 years ago both at rest and on exertion. No known lung disease, no chest pain or palpitations, no syncope. Pt has been chronically on suboxone. Said his last use of suboxone although picked up was about a month ago. ER course was notable for: (1) stable vital signs, no evidence of sepsis, trop+ 0.07 x1, (2)EKbpm, NSR, with PACs, NSTE?STD, Nl axis, QTC-433 (3) CT Abdomen: scattered diverticula of L colon. Possibly representing a chronic type of diverticulitis. S/p cholecystectomy. Non obstructing calculus lower pole of kidney, ventral hernia (gastric lap band noted, 1cm calcific density lower pole L kidney, lower abd ventral hernia w/o obstruction, metallic type densities possibly seondary to a hernia type repair). No bowel obstruction 4) Morphine- 12mg, ativan 1mg, zofran-12mg, cipro iv 400mg, flagyl iv 500mg Recent Travel: PAST MEDICAL HISTORY: afib (s/p ablation 2 years ago, on coreg, no AC), diverticulitis (1 year prior, non surgical), cholecystitis (6 years prior, s/p cholecystectomy), chronic constipation, ventral hernia s/p repair (may 2017), hypertension, diabetes PAST SURGICAL HISTORY: abdominal (ventral) hernia repair (may 2017) afib (s/p ablation 2yrs ago), s/p cholecystectomy (6 yrs ago) s/p gastric lap band goiter removal with partial thyroidectomy (10-15yrs ago) R knee replacement Social History: [employer]ired [employer], 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 [employer] Lives with Ambulates with cane, does not drive Smokin-15 cigs/day since 14yrs of age Alcohol:Said he stopped 1995 Drugs: 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 Family History: Father at 70yrs unknown Mother alive with cardiac stents and DM Sister on dialysis/DM Allergies Penicillins Allergy (Mild, Verified 12/28/17 08:45) Rash HOME MEDICATIONS: Home Medications Medication Instructions Recorded Carvedilol [Coreg] 25 mg PO BID 07/03/14 Furosemide [Lasix -] 40 mg PO DAILY 07/03/14 Pioglitazone HCl/Metformin HCl 1 each PO BID 07/03/14 [Pioglitazone-Metformin 15-500] Pregabalin [Lyrica -] 75 mg PO DAILY PRN 07/03/14 Cholecalciferol (Vitamin D3) 50,000 unit PO ASDIR 11/01/15 [Vitamin D3] Docusate Sodium [Colace -] 100 mg PO Q8H PRN #0 capsule 11/07/15 Polyethylene Glycol 3350 [Miralax 17 gm PO BID bottle 11/07/15 119 gm Btl -] REVIEW OF SYSTEMS CONSTITUTIONAL: Absent: fever, chills+, diaphoresis, generalized weakness, malaise, loss of appetite, weight change HEENT: Absent: rhinorrhea, nasal congestion, throat pain, throat swelling, difficulty swallowing, mouth swelling, ear pain, eye pain, visual changes CARDIOVASCULAR: Absent: chest pain, syncope, palpitations, irregular heart rate, lightheadedness , peripheral edema RESPIRATORY: Absent: cough, shortness of breath, dyspnea with exertion, orthopnea, wheezing, stridor, hemoptysis GASTROINTESTINAL: Absent: abdominal pain, abdominal distension, nausea, vomiting+, diarrhea, constipation, melena, hematochezia GENITOURINARY: Absent: dysuria, frequency, urgency, hesitancy, hematuria, flank pain, genital pain MUSCULOSKELETAL: Absent: myalgia, arthralgia, joint swelling, back pain, neck pain SKIN: Absent: rash, itching, pallor HEMATOLOGIC/IMMUNOLOGIC: Absent: easy bleeding, easy bruising, lymphadenopathy, frequent infections ENDOCRINE: Absent: unexplained weight gain, unexplained weight loss, heat intolerance, cold intolerance NEUROLOGIC: Absent: headache, focal weakness or paresthesias, dizziness, unsteady gait, seizure, mental status changes, bladder or bowel incontinence PSYCHIATRIC: Absent: anxiety, depression, suicidal or homicidal ideation, hallucinations. PHYSICAL EXAMINATION Vital Signs - 24 hr 12/28/17 08:46 Temperature 97.7 F Pulse Rate 83 Respiratory 20 Rate Blood Pressure 118/53 L O2 Sat by Pulse 100 Oximetry (%) GENERAL: Morbidly obese male, Awake, alert, and fully oriented, in no acute distress. HEAD: Healing L forehead bruise EYES: Pupils equal, round and reactive to light, sclera anicteric, conjunctiva clear EARS, NOSE, THROAT: poor dentition, oropharynx clear without exudates. Moist mucous membranes. NECK: supple LUNGS: Breath sounds equal, clear to auscultation bilaterally. No wheezes, and no crackles. HEART: Regular rate and rhythm, normal S1 and S2 without murmur ABDOMEN: Obese, with peu d'orange distal aspect of abdomen (chronic edema changes)firm to Soft, generalized tenderness more in LLQ, MUSCULOSKELETAL: No bony deformities or tenderness. No CVA tenderness. LOWER EXTREMITIES: Chronic lymphedematous changes b/l LEs . pulses present, warm, No calf tenderness. NEUROLOGICAL: Cranial nerves II-XII intact. Normal speech. Gait not observed. CBC, BMP 12/28/17 10:00 12/28/17 10:00 Laboratory Results - last 24 hr 12/28/17 12/28/17 12/28/17 10:00 10:00 10:00 WBC 4.8 RBC 4.54 Hgb 12.6 Hct 39.0 MCV 86.0 MCH 27.8 MCHC 32.3 RDW 15.2 D Plt Count 108 L MPV 9.3 Absolute Neuts (auto) 3.6 Neutrophils % 74.4 Lymphocytes % 19.3 D Monocytes % 5.7 Eosinophils % 0.2 D Basophils % 0.4 Nucleated RBC % 0 PT with INR 13.30 H INR 1.13 H PTT (Actin FS) 31.9 Sodium 139 Potassium 3.9 Chloride 104 Carbon Dioxide 27 Anion Gap 8 BUN 11 Creatinine 0.8 Creat Clearance w eGFR > 60 Random Glucose 152 H Calcium 8.9 Phosphorus 2.2 L Magnesium 1.6 L Total Bilirubin 0.8 AST 63 H ALT 37 Alkaline Phosphatase 87 Creatine Kinase 235 Creatine Kinase Index 0.8 CK-MB (CK-2) 2.0 Troponin I 0.07 H Total Protein 9.1 H Albumin 3.1 L Lipase 84 Current Medications Carvedilol (Coreg -) 25 mg PO BID [facility] Heparin Sodium (Porcine) (Heparin -) 5,000 unit SQ TID MIGUEL ÁNGEL Sodium Chloride (Normal Saline -) 1,000 mls @ 75 mls/hr IV ASDIR MIGUEL ÁNGEL Stop: 12/29/17 05:04 Insulin Aspart (Novolog Vial Sliding Scale -) 1 vial SQ ACHS MIGUEL ÁNGEL; Protocol Morphine Sulfate (Morphine Sulfate) 2 mg IVPUSH Q3H PRN PRN Reason: PAIN LEVEL 6-10 Non-Formulary Medication (Cholecalciferol (Vitamin D3) [Vitamin D3]) 50,000 unit PO ASDIR MIGUEL ÁNGEL Pregabalin (Lyrica -) 75 mg PO Q24H PRN PRN Reason: NERVE PAIN ASSESSMENT/PLAN: 67 yo M with PMHx of afib (s/p ablation 2 years ago, on coreg, no AC), diverticulitis (1 year prior, non surgical), cholecystitis (6 years prior, s/p cholecystectomy), chronic constipation, ventral hernia repair (may 2017), hypertension, diabetes, presenting with abdominal pain, and vomiting for 2 days. #Abdominal pain: Could be due to diverticulitis R/O abdominal adhesions, no current evidence of bowel obstruction Hx of diverticulitis, CT ap shows diverticulitis Multiple previous abdominal surgeries Last BM this am, passing gas Pt allergic to pen- given cipro 400 and flagyl 500mg in ED, cont ID- Dr Dawson Sx- Dr Ye Pain mx with iv morphine 2mg Q3H Iv zofran 4mg Q8h IV NS @75 x1 bag #opioid dependence R/O opioid withdrawal pain Pt chronically on suboxone Saids his last use was 1 month ago I stop- showing recent prescription Detox consult- Dr To Low dose morphine Cont pregabalin #Elevated trops Likely due to demand in ischemia, no chest pain Pt gave a hx of being chronically SOB, not hypoxic in RA, not using accessory muscles Up to 0.07 x1 Pending repeat Tele obs Card- Dr Bravo # afib (s/p ablation 2 years ago, on coreg, no AC), Rate controlled, not currently in afib Tele obs Card #chronic constipation Not currently constipated Has had daily bowel movements since abd pain No evidence of bowel obstruction on imaging ventral hernia repair (may 2017) No obvious hernia on abdominal exam Not likely incarcerated, no evidence on imaging hypertension Resume coreg-25mg bid diabetes Hold home metformin/pioglitazone BGM ACHS ISS ACHS FEN NS @75/hr Monitor lytes and replete as needed NPO DVT Hep sq 5000 tid Dispo Tele obs Visit type - Emergency Visit Emergency Visit: Yes ED Registration Date: 12/28/17 Care time: The patient presented to the Emergency Department on the above date and was hospitalized for further evaluation of their emergent condition. - New Patient This patient is new to me today: Yes Date on this admission: 12/28/17 - Critical Care Critical Care patient: No Hospitalist Screening - Colonoscopy Questionnaire Colonoscopy Questionnaire: Colonoscopy Questionnaire - Patient: 50 - 75 years old and never had a screening colonoscopy: Yes History of colon or rectal polyps, or CA: Unknown History of IBD, Crohn's disease or UC: Unknown History of abdominal radiation therapy as a child: Unknown - Relative: 1 with colon or rectal CA, or polyps at age 60 or younger: Unknown Colon or rectal CA diagnosed at age 45 or younger: Unknown Multiple relatives with colon or rectal CA: Unknown - Outcome: Screening Result: Positive Screen
--- NOTE | 2017-12-28 15:21 | PN ---
Teaching Attending Note Name of Resident: Melissa Lesvia Jared ATTENDING PHYSICIAN STATEMENT I saw and evaluated the patient. I reviewed the resident's note and discussed the case with the resident. I agree with the resident's findings and plan as documented. SUBJECTIVE: Patient is c/o having severe abdominal pain, asking for pain medications. OBJECTIVE: Vital Signs Temperature 97.7 F 12/28/17 08:46 Pulse Rate 83 12/28/17 08:46 Respiratory Rate 20 12/28/17 08:46 Blood Pressure 118/53 L 12/28/17 08:46 O2 Sat by Pulse Oximetry (%) 100 12/28/17 08:46 GENERAL: Awake, alert, and fully oriented, in no acute distress. HEAD: Normal with no signs of trauma. EYES: Pupils equal, round and reactive to light, extraocular movements intact, sclera anicteric, conjunctiva clear. EARS, NOSE, THROAT: Ears normal, oropharynx clear without exudates. Moist mucous membranes. NECK: Normal range of motion, supple without lymphadenopathy, JVD, or masses. LUNGS: Breath sounds equal, clear to auscultation bilaterally. No wheezes, and no crackles. No accessory muscle use. HEART: Regular rate and rhythm, normal S1 and S2 without murmur, rub or gallop. ABDOMEN: Soft, diffuse tenderness, large abdomen, voluntary guarding, no rebound , no masses. MUSCULOSKELETAL: Normal range of motion at all joints. No bony deformities or tenderness. No CVA tenderness. EXTREMITIES: 2+ pulses, warm, well-perfused. No cyanosis. No clubbing. No peripheral edema.chronic changes of lower extremity NEUROLOGICAL: Cranial nerves II-XII intact. Normal speech. gait not observed. PSYCHIATRIC: Cooperative. Good eye contact. Appropriate mood and affect. SKIN: chronic changes of;lower extremity normal capillary refill. CBCD WBC 4.8 K/mm3 (4.0-10.0) 12/28/17 10:00 RBC 4.54 M/mm3 (4.00-5.60) 12/28/17 10:00 Hgb 12.6 GM/dL (11.7-16.9) 12/28/17 10:00 Hct 39.0 % (35.4-49) 12/28/17 10:00 MCV 86.0 fl (80-96) 12/28/17 10:00 MCHC 32.3 g/dl (32.0-35.9) 12/28/17 10:00 RDW 15.2 % (11.9-15.9) D 12/28/17 10:00 Plt Count 108 K/MM3 (134-434) L 12/28/17 10:00 MPV 9.3 fl (7.5-11.1) 12/28/17 10:00 CMP Sodium 139 mmol/L (136-145) 12/28/17 10:00 Potassium 3.9 mmol/L (3.5-5.1) 12/28/17 10:00 Chloride 104 mmol/L (98-107) 12/28/17 10:00 Carbon Dioxide 27 mmol/L (21-32) 12/28/17 10:00 Anion Gap 8 MMOL/L (8-16) 12/28/17 10:00 BUN 11 mg/dL (7-18) 12/28/17 10:00 Creatinine 0.8 mg/dL (0.55-1.3) 12/28/17 10:00 Creat Clearance w eGFR > 60 (>60) 12/28/17 10:00 Random Glucose 152 mg/dL (74-106) H 12/28/17 10:00 Calcium 8.9 mg/dL (8.5-10.1) 12/28/17 10:00 Total Bilirubin 0.8 mg/dL (0.2-1) 12/28/17 10:00 AST 63 U/L (15-37) H 12/28/17 10:00 ALT 37 U/L (13-61) 12/28/17 10:00 Alkaline Phosphatase 87 U/L (45-117) 12/28/17 10:00 Total Protein 9.1 g/dl (6.4-8.2) H 12/28/17 10:00 Albumin 3.1 g/dl (3.4-5.0) L 12/28/17 10:00 CARDIAC ENZYMES Creatine Kinase 235 IU/L (26-308) 12/28/17 10:00 Troponin I 0.07 ng/ml (0.00-0.05) H 12/28/17 14:20 COMPARISON: May 17, 2017 FINDINGS: Again noted gastric lap band Again noted status post cholecystectomy Again noted 1 cm calcific density lower pole left kidney Again noted is a lower abdominal ventral hernia without evidence of obstruction Adjacent to the hernia are several small metallic type densities possibly secondary to a hernia type repair The liver, spleen, adrenal glands and pancreas are unremarkable. There is no hydronephrosis, renal masses There is no retroperitoneal lymphadenopathy. There is no abdominal aortic aneurysm. There are scattered diverticula of the left colon There are no inflammatory changes of the appendix. There are no fluid collections in the abdomen or pelvis. There is no bowel obstruction. The urinary bladder and prostate are unremarkable. IMPRESSION: Scattered diverticula of left colon. Possibly representing a chronic type of diverticulitis. Status post cholecystectomy Nonobstructing calculus lower pole left kidney Ventral hernia ASSESSMENT AND PLAN: 67 yo M with PMHx of afib (s/p ablation 2 years ago, on coreg, no AC), diverticulitis (1 year prior, non surgical), cholecystitis (6 years prior, s/p cholecystectomy), chronic constipation, ventral hernia repair (may 2017), hypertension, diabetes, presenting with abdominal pain, and vomiting for 2 days. #Abdominal pain: with hx of Gastric banding and recent hernia repair cannot r/ o Adhesions; will give him 2gm Morphine q3hr prn pain #opioid dependence on Suboxone , last Suboxone use is on 10/2017, detox consult- Dr To #Mild elevation of troponins: likely due to demand in ischemia, no chest pain, card- Dr Bravo # afib (s/p ablation 2 years ago, on coreg, no AC), #chronic constipation is on [employer] diet #Hx of ventral hernia repair (may 2017) # Hypertension on coreg-25mg bid continue # T2DM Hold home metformin/pioglitazone, BGM ACHS # Morbid Obesity: Gastric bypass recommendation, needs to go back to his surgeon DVT: Hep sq 5000 tid Tele obs
[2017-12-28] MEDS ORDERED: SODIUM CHLORIDE 1,000 ML IV SCH (15:45)
[2017-12-28] MEDS ORDERED: PREGABALIN 75 MG CAPSULE PO PRN (15:47)
[2017-12-28] MEDS ORDERED: PATIENT'S OWN MEDICATION (NON-FORMULARY) (Cholecalciferol (Vitamin D3) [Vitamin D3] 50,000 PO SCH (16:00)
[2017-12-28] MEDS ORDERED: ONDANSETRON 4 MG/2 ML VIAL IVPB PRN (16:31)
[2017-12-28] MEDS ORDERED: PREGABALIN 50 MG CAPSULE PO PRN (16:37)
[2017-12-28] MEDS ORDERED: HEPARIN NA (PORCINE) 5,000 UNITS/ML 1ML VIAL ONE ×2 (16:58→22:05)
[2017-12-28] MEDS: INSULIN SLIDING SCALE (NOVOLOG) 1 VIAL SQ SCH ×2 (16:59→22:36)
[2017-12-28] MEDS: HEPARIN NA (PORCINE) 5,000 UNITS/ML 1ML VIAL SQ SCH ×2 (16:59→22:02)
[2017-12-28] MEDS ORDERED: INSULIN REGULAR HUMAN 100 UNITS/ML *VIAL ONE (17:01)
[2017-12-28] MEDS: MORPHINE SULFATE 2 MG/ML VIAL IVPUSH PRN ×2 (19:07→22:35)
[2017-12-28] MEDS ORDERED: MORPHINE SULFATE 2 MG/ML VIAL ONE ×2 (19:08→22:26)
[2017-12-28] MEDS ORDERED: CARVEDILOL 12.5 MG TABLET (FP) ONE (22:05)
[2017-12-28] MEDS: CARVEDILOL 25 MG TABLET (FP) PO SCH (22:13)
[2017-12-29] MEDS ORDERED: MORPHINE SULFATE 2 MG/ML VIAL ONE ×7 (02:10→22:36)
[2017-12-29] MEDS: MORPHINE SULFATE 2 MG/ML VIAL IVPUSH PRN ×4 (02:15→16:35)
[2017-12-29] MEDS ORDERED: CIPROFLOXACIN 400 MG/D5W 400 MG/200 ML IVPB IVPB ONE (03:00)
[2017-12-29] MEDS: HEPARIN NA (PORCINE) 5,000 UNITS/ML 1ML VIAL SQ SCH ×3 (06:06→22:00)
--- NOTE | 2017-12-29 06:08 | EKG ---
Test Reason : Blood Pressure : / mmHG Vent. Rate : 096 BPM Atrial Rate : 096 BPM P-R Int : 166 ms QRS Dur : 092 ms QT Int : 368 ms P-R-T Axes : 061 018 013 degrees QTc Int : 464 ms NORMAL SINUS RHYTHM NORMAL ECG WHEN COMPARED WITH ECG OF 28-DEC-2017 09:29, PREMATURE ATRIAL COMPLEXES ARE NO LONGER PRESENT Confirmed by ZACHARY BA MD ([id number]) on 12/29/2017 6:08:33 AM Referred By: Confirmed By:ZACHARY BA MD
--- NOTE | 2017-12-29 06:13 | EKG ---
Test Reason : Blood Pressure : / mmHG Vent. Rate : 068 BPM Atrial Rate : 068 BPM P-R Int : 156 ms QRS Dur : 092 ms QT Int : 408 ms P-R-T Axes : 053 035 017 degrees QTc Int : 433 ms SINUS RHYTHM WITH PREMATURE ATRIAL COMPLEXES OTHERWISE NORMAL ECG WHEN COMPARED WITH ECG OF 17-MAY-2017 01:15, PREMATURE ATRIAL COMPLEXES ARE NOW PRESENT Confirmed by MEJIA GONZALEZ, ZACHARY ([id number]) on 12/29/2017 6:13:05 AM Referred By: Confirmed By:ZACHARY BA MD
[2017-12-29 07:38] LABS: BASO % 0.3 % (0-2.0); EOS % 0.1 % (0-4.5); HEMOGLOBIN 12.4 GM/dL (11.7-16.9); LYMPH % 19.1 % (8-40); MCH 27.3 pg (25.7-33.7); MCHC 31.7 g/dl (32.0-35.9); MEAN CELL VOLUME 86.1 fl (80-96); MEAN PLT VOLUME 9.9 fl (7.5-11.1); MONO % 11.2 % (3.8-10.2); NEUT % 69.3 % (42.8-82.8); PLATELET COUNT 104 K/MM3 (134-434); RBC 4.53 M/mm3 (4.00-5.60); RDW 15.4 % (11.9-15.9); WHITE BLOOD COUNT 7.4 K/mm3 (4.0-10.0)
[2017-12-29 08:52] LABS: ALBUMIN 2.9 g/dl (3.4-5.0); ALK PHOS 74 U/L (45-117); ANION GAP 8 MMOL/L (8-16); BLOOD UREA NITROGEN 13 mg/dL (7-18); CALCIUM 8.5 mg/dL (8.5-10.1); CHLORIDE 101 mmol/L (98-107); CO2 29 mmol/L (21-32); CREATININE 0.8 mg/dL (0.55-1.3); GLUCOSE,RANDOM 113 mg/dL (74-106); MAGNESIUM 2.1 mg/dL (1.8-2.4); PHOSPHOROUS 3.4 mg/dL (2.5-4.9); POTASSIUM 3.8 mmol/L (3.5-5.1); SGOT/AST 56 U/L (15-37); SGPT/ALT 31 U/L (13-61); SODIUM 138 mmol/L (136-145); TOT PROT 8.4 g/dl (6.4-8.2)
[2017-12-29] MEDS: INSULIN SLIDING SCALE (NOVOLOG) 1 VIAL SQ SCH ×4 (08:55→23:02)
--- NOTE | 2017-12-29 09:51 | CON.CARD ---
Consult Consult Specialty:: Cardiology - History of Present Illness History of Present Illness: 67 yo M with PMHx of afib (s/p ablation 2 years ago, on coreg, no AC), diverticulitis (1 year prior, non surgical), cholecystitis (6 years prior, s/p cholecystectomy), chronic constipation ventral hernia repair (may 2017), hypertension, diabetes, presenting with abdominal pain for 2 days. Patient reports diffuse 8/10 constant and sharp abdominal pain and multiple episodes of nausea and vomiting Of clear NBNB vomit. Has a history of chronic constipation ( usually moves bowel weekly),last bowel movement this am of formed brown stool. Two days ago, pt ate white [place] burgers and a milkshake which typically helps him pass stool, and had one loose bowel movement on Friday and one formed daily on fri and friday. He subsequently had severe abdominal pain with vomiting since. No diarrhea, no bloody stools or melena. Pt reports chills, nasal congestion and myalgias but no sorethroat or cough. Is chronically SOB since ablation 2 years ago both at rest and on exertion. No known lung disease, no chest pain or palpitations, no syncope. Pt has been chronically on suboxone. Said his last use of suboxone although picked up was about a month ago. ER course was notable for: (1) stable vital signs, no evidence of sepsis, trop+ 0.07 x1, (2)EKbpm, NSR, with PACs, NSTE?STD, Nl axis, QTC-433 (3) CT Abdomen: scattered diverticula of L colon. Possibly representing a chronic type of diverticulitis. S/p cholecystectomy. Non obstructing calculus lower pole of kidney, ventral hernia (gastric lap band noted, 1cm calcific density lower pole L kidney, lower abd ventral hernia w/o obstruction, metallic type densities possibly seondary to a hernia type repair). No bowel obstruction 4) Morphine- 12mg, ativan 1mg, zofran-12mg, cipro iv 400mg, flagyl iv 500mg Recent Travel: PAST MEDICAL HISTORY: afib (s/p ablation 2 years ago, on coreg, no AC), diverticulitis (1 year prior, non surgical), cholecystitis (6 years prior, s/p cholecystectomy), chronic constipation, ventral hernia s/p repair (may 2017), hypertension, diabetes PAST SURGICAL HISTORY: abdominal (ventral) hernia repair (may 2017) afib (s/p ablation 2yrs ago), s/p cholecystectomy (6 yrs ago) s/p gastric lap band goiter removal with partial thyroidectomy (10-15yrs ago) R knee replacement Social History: Retired [employer], 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 [employer] Lives with Ambulates with cane, does not drive Smokin-15 cigs/day since 14yrs of age Alcohol:Said he stopped 1995 Drugs: 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 Family History: Father at 70yrs unknown Mother alive with cardiac stents and DM Sister on dialysis/DM Allergies Penicillins Allergy (Mild, Verified 12/28/17 08:45) Rash - Past Medical History Cardio/Vascular: Yes: AFIB, CHF, HTN Pulmonary: Yes: Sleep Apnea (r/u sleep apnea) Gastrointestinal: Yes: Constipation Hepatobiliary: Yes: Hepatitis C Psych: Yes: Other (addictive personality) Endocrine: Yes: Diabetes Mellitus Additional Medical History: obesity c/o Lap band - Alcohol/Substance Use Hx Alcohol Use: No History of Substance Use: reports: Heroin (1970) - Smoking History Smoking history: Current every day smoker Have you smoked in the past 12 months: Yes Aproximately how many cigarettes per day: 10 - Social History ADL: Independent 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 [employer] History of Recent Travel: No Home Medications - Allergies Allergies/Adverse Reactions: Allergies Allergy/AdvReac Type Severity Reaction Status Date / Time Penicillins Allergy Mild Rash Verified 12/28/17 08:45 - Home Medications Home Medications: Ambulatory Orders Carvedilol [Coreg] 25 mg PO BID 07/03/14 Furosemide [Lasix -] 40 mg PO DAILY 07/03/14 Pioglitazone HCl/Metformin HCl [Pioglitazone-Metformin 15-500] 1 each PO BID 08/12 Pregabalin [Lyrica -] 75 mg PO DAILY PRN 07/03/14 Cholecalciferol (Vitamin D3) [Vitamin D3] 50,000 unit PO ASDIR 11/01/15 Docusate Sodium [Colace -] 100 mg PO Q8H PRN #0 capsule 11/07/15 Polyethylene Glycol 3350 [Miralax 119 gm Btl -] 17 gm PO BID bottle 11/07/15 Review of Systems - Review of Systems Constitutional: reports: No Symptoms Eyes: reports: No Symptoms HENT: reports: No Symptoms Neck: reports: No Symptoms Cardiovascular: reports: No Symptoms Gastrointestinal: reports: Abdominal Pain Genitourinary: reports: No Symptoms Breasts: reports: No Symptoms Reported Musculoskeletal: reports: No Symptoms Integumentary: reports: No Symptoms Neurological: reports: No Symptoms Endocrine: reports: No Symptoms Hematology/Lymphatic: reports: No Symptoms Psychiatric: reports: No Symptoms Vital Signs: Vital Signs Temperature 98.8 F 12/29/17 07:18 Pulse Rate 84 12/29/17 07:18 Respiratory Rate 20 12/29/17 07:18 Blood Pressure 138/74 12/29/17 07:18 O2 Sat by Pulse Oximetry (%) 98 12/29/17 07:18 Constitutional: Yes: Well Nourished, No Distress, Calm Eyes: Yes: WNL, Conjunctiva Clear, EOM Intact HENT: Yes: WNL, Atraumatic, Normocephalic Neck: Yes: WNL, Supple, Trachea Midline Respiratory: Yes: WNL, Regular, CTA Bilaterally Gastrointestinal: Yes: WNL, Normal Bowel Sounds Renal/: Yes: WNL Cardiovascular: Yes: WNL, Regular Rate and Rhythm Heart Sounds: Yes: S1, S2 Musculoskeletal: Yes: WNL Extremities: Yes: WNL Integumentary: Yes: WNL Neurological: Yes: WNL, Alert, Oriented ...Motor Strength: WNL Psychiatric: Yes: WNL, Alert, Oriented - Other Data Labs, Other Data: CBC, BMP 12/29/17 07:18 12/29/17 06:00 INR, PTT INR 1.13 (0.83-1.09) H 12/28/17 10:00 Troponin, BNP 12/28/17 12/28/17 10:00 14:20 Troponin I 0.07 H 0.07 H Troponin, BNP 12/28/17 12/28/17 10:00 14:20 Troponin I 0.07 H 0.07 H Laboratory Tests 12/28/17 12/28/17 12/28/17 10:00 10:00 10:00 WBC 4.8 RBC 4.54 Hgb 12.6 Hct 39.0 MCV 86.0 MCH 27.8 MCHC 32.3 RDW 15.2 D Plt Count 108 L MPV 9.3 Absolute Neuts (auto) 3.6 Neutrophils % 74.4 Lymphocytes % 19.3 D Monocytes % 5.7 Eosinophils % 0.2 D Basophils % 0.4 Nucleated RBC % 0 PT with INR 13.30 H INR 1.13 H PTT (Actin FS) 31.9 Sodium 139 Potassium 3.9 Chloride 104 Carbon Dioxide 27 Anion Gap 8 BUN 11 Creatinine 0.8 Creat Clearance w eGFR > 60 POC Glucometer Random Glucose 152 H Lactic Acid Calcium 8.9 Phosphorus 2.2 L Magnesium 1.6 L Total Bilirubin 0.8 AST 63 H ALT 37 Alkaline Phosphatase 87 Creatine Kinase 235 Creatine Kinase Index 0.8 CK-MB (CK-2) 2.0 Troponin I 0.07 H Total Protein 9.1 H Albumin 3.1 L Lipase 84 12/28/17 12/28/17 12/28/17 14:20 14:20 22:32 WBC RBC Hgb Hct MCV MCH MCHC RDW Plt Count MPV Absolute Neuts (auto) Neutrophils % Lymphocytes % Monocytes % Eosinophils % Basophils % Nucleated RBC % PT with INR INR PTT (Actin FS) Sodium Potassium Chloride Carbon Dioxide Anion Gap BUN Creatinine Creat Clearance w eGFR POC Glucometer 134.23650 Random Glucose Lactic Acid 2.0 Calcium Phosphorus Magnesium Total Bilirubin AST ALT Alkaline Phosphatase Creatine Kinase Creatine Kinase Index CK-MB (CK-2) Troponin I 0.07 H Total Protein Albumin Lipase 12/29/17 12/29/17 06:00 07:18 WBC 7.4 RBC 4.53 Hgb 12.4 Hct 39.0 MCV 86.1 MCH 27.3 MCHC 31.7 L RDW 15.4 Plt Count 104 L MPV 9.9 Absolute Neuts (auto) 5.1 Neutrophils % 69.3 Lymphocytes % 19.1 Monocytes % 11.2 H D Eosinophils % 0.1 Basophils % 0.3 Nucleated RBC % 0 PT with INR INR PTT (Actin FS) Sodium 138 Potassium 3.8 Chloride 101 Carbon Dioxide 29 Anion Gap 8 BUN 13 Creatinine 0.8 Creat Clearance w eGFR > 60 POC Glucometer Random Glucose 113 H Lactic Acid Calcium 8.5 Phosphorus 3.4 Magnesium 2.1 Total Bilirubin 1.0 AST 56 H ALT 31 Alkaline Phosphatase 74 Creatine Kinase Creatine Kinase Index CK-MB (CK-2) Troponin I Total Protein 8.4 H Albumin 2.9 L Lipase Imaging - Results Chest X-ray: Pending EKG: Image Reviewed (NSR no st t wave changes) Problem List - Problems (1) Diverticulitis Code(s): K57.92 - DVTRCLI OF INTEST, PART UNSP, W/O PERF OR ABSCESS W/O BLEED (2) Elevated troponin I level Code(s): R74.8 - ABNORMAL LEVELS OF OTHER SERUM ENZYMES (3) Intractable abdominal pain Code(s): R10.9 - UNSPECIFIED ABDOMINAL PAIN (4) Acute kidney failure Code(s): N17.9 - ACUTE KIDNEY FAILURE, UNSPECIFIED (5) Atrial fibrillation with tachycardic ventricular rate Code(s): I48.91 - UNSPECIFIED ATRIAL FIBRILLATION (6) Cigarette nicotine dependence Code(s): F17.210 - NICOTINE DEPENDENCE, CIGARETTES, UNCOMPLICATED (7) Diabetes Code(s): E11.9 - TYPE 2 DIABETES MELLITUS WITHOUT COMPLICATIONS (8) [place] cardiac risk >20% in next 10 years Code(s): Z91.89 - OTH PERSONAL RISK FACTORS, NOT ELSEWHERE CLASSIFIED (9) HTN (hypertension) Code(s): I10 - ESSENTIAL (PRIMARY) HYPERTENSION (10) Morbid obesity Code(s): E66.01 - MORBID (SEVERE) OBESITY DUE TO EXCESS CALORIES (11) Naloxone poisoning Code(s): T50.7X1A - POISN BY ANALEPTICS AND OPIOID RECEPTOR ANTAG, ACC, INIT (12) Opiate dependence Code(s): F11.20 - OPIOID DEPENDENCE, UNCOMPLICATED (13) Opioid dependence on agonist therapy Code(s): F11.20 - OPIOID DEPENDENCE, UNCOMPLICATED (14) Renal dysfunction Code(s): N28.9 - DISORDER OF KIDNEY AND URETER, UNSPECIFIED (15) Sleep apnea Code(s): G47.30 - SLEEP APNEA, UNSPECIFIED (16) Small bowel obstruction Code(s): K56.609 - UNSP INTESTNL OBST, UNSP TO PARTIAL VERSUS COMPLETE OBST (17) Ventral hernia with bowel obstruction Code(s): K43.6 - OTHER AND UNSP VENTRAL HERNIA WITH OBSTRUCTION, W/O GANGRENE Assessment/Plan 67 yo M with PMHx of afib (s/p ablation 2 years ago, on coreg, no AC), diverticulitis (1 year prior, non surgical), cholecystitis (6 years prior, s/p cholecystectomy), chronic constipation, ventral hernia repair (may 2017), hypertension, diabetes, presenting with abdominal pain, and vomiting for 2 days. Plan echo ce telemetry surgical and GI eval
[2017-12-29] MEDS ORDERED: ERGOCALCIFEROL (VITAMIN D2) 50,000 UNIT CAPSULE (FP) PO SCH (10:00)
[2017-12-29] MEDS ORDERED: CARVEDILOL 12.5 MG TABLET (FP) ONE (10:49)
[2017-12-29] MEDS: CARVEDILOL 25 MG TABLET (FP) PO SCH (10:55)
--- NOTE | 2017-12-29 12:24 | CONSULT ---
Consult Consult Specialty:: General Surgery Reason for Consultation:: Abdominal Pain - History of Present Illness Chief Complaint: Abdominal Pain History of Present Illness: 67yo male Afib, Hepatitis C, HTN, CHF, DM type 2, Diverticular disease, Morbid obesity s/p Lap band 2008, s/p ventral hernia Repair May 2017 at [facility] presented to the ED with recurrent diffuse abdominal pain, constipation and nausea. Has not had a normal bowel movement in weeks. He often passes hard stool and uses "2 white castles chocolate shakes and hamburgers" for its laxative effect. He is passing flatus. he has felt nausea but no vomiting and diffuse abdominal pain he rates 5/10. since our last visit he has been seen by Dr. La but has not had revision of his lap band but did have a laparoscopic ventral hernia repair as evidenced by his most recent CT scan. We were asked to assess. - History Source History Provided By: Patient, Medical Record Limitations to Obtaining History: No Limitations - Past Medical History Cardio/Vascular: Yes: AFIB, CHF, HTN Pulmonary: Yes: Sleep Apnea (r/u sleep apnea) Gastrointestinal: Yes: Constipation Hepatobiliary: Yes: Hepatitis C Psych: Yes: Other (addictive personality) Endocrine: Yes: Diabetes Mellitus Additional Medical History: obesity c/o Lap band - Alcohol/Substance Use Hx Alcohol Use: No History of Substance Use: reports: Heroin (1970) - Smoking History Smoking history: Current every day smoker Have you smoked in the past 12 months: Yes Aproximately how many cigarettes per day: 10 - Social History ADL: Independent 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 [employer] History of Recent Travel: No Home Medications - Allergies Allergies/Adverse Reactions: Allergies Allergy/AdvReac Type Severity Reaction Status Date / Time Penicillins Allergy Mild Rash Verified 12/28/17 08:45 - Home Medications Home Medications: Ambulatory Orders Carvedilol [Coreg] 25 mg PO BID 07/03/14 Furosemide [Lasix -] 40 mg PO DAILY 07/03/14 Pioglitazone HCl/Metformin HCl [Pioglitazone-Metformin 15-500] 1 each PO BID 08/12 Pregabalin [Lyrica -] 75 mg PO DAILY PRN 07/03/14 Cholecalciferol (Vitamin D3) [Vitamin D3] 50,000 unit PO ASDIR 11/01/15 Docusate Sodium [Colace -] 100 mg PO Q8H PRN #0 capsule 11/07/15 Polyethylene Glycol 3350 [Miralax 119 gm Btl -] 17 gm PO BID bottle 11/07/15 Review of Systems - Review of Systems Constitutional: reports: Chills. denies: Fever Eyes: denies: Blind Spots, Blurred Vision, Recent Change in Vision HENT: denies: Difficult Swallowing, Throat Pain Neck: denies: Pain on Movement, Tenderness Cardiovascular: denies: Chest Pain, Palpitations Respiratory: denies: Cough, SOB Gastrointestinal: reports: Abdominal Pain, Constipation, Nausea. denies: Diarrhea Genitourinary: denies: Burning, Testicular Mass, Testicular Swelling Musculoskeletal: denies: Back Pain, Muscle Pain, Muscle Cramps, Muscle Weakness Integumentary: denies: Blister, Pallor, Pruritis Neurological: denies: Confusion, Dizziness, Syncope, Tremors Endocrine: denies: Unexplained Weight Gain, Unexplained Weight Loss Hematology/Lymphatic: denies: Easily Bruised, Excessive Bleeding Psychiatric: denies: Anxiety, Depression Physical Exam Vital Signs: Vital Signs Temperature 98.8 F 12/29/17 07:18 Pulse Rate 84 12/29/17 07:18 Respiratory Rate 20 12/29/17 07:18 Blood Pressure 138/74 12/29/17 07:18 O2 Sat by Pulse Oximetry (%) 98 12/29/17 07:18 Constitutional: Yes: Well Nourished, No Distress, Calm, Obese Eyes: Yes: Conjunctiva Clear, EOM Intact HENT: Yes: Atraumatic, Normocephalic Neck: Yes: Supple, Trachea Midline Cardiovascular: Yes: Regular Rate and Rhythm, S1, S2 Respiratory: Yes: Regular, CTA Bilaterally Gastrointestinal: Yes: Normal Bowel Sounds, Soft, Abdomen, Obese, Hernia ( Ventral herna is reducible), Tenderness (diffuse). No: Tenderness, Epigastrium , Tenderness, Rebound ...Rectal Exam: Yes: Deferred Renal/: No: CVA Tenderness - Left, CVA Tenderness - Right Extremities: No: Cool, Cyanosis Integumentary: No: Jaundice, Rash, Tattoos, Tenting Neurological: Yes: Alert, Oriented Psychiatric: Yes: Alert, Oriented Labs: CBC, BMP 12/29/17 07:18 12/29/17 06:00 Imaging - Results Cat Scan: Report Reviewed, Image Reviewed Problem List - Problems (1) Atrial fibrillation with tachycardic ventricular rate Assessment/Plan: 67yo male MMP including morbid obesity, chronic constipation, lapband 2008 and a recently repaired ventral hernia May 2017 at [facility]. He has a CTscan that that shows scattered diverticulum left colon without diverticulitis. There is also not a significant stool burden on the scan. He does not have a hernia related pain. NPO and IVF hydation Serial Abdominal Exams Consider repeat CT scan with PO contrast Thank you for the opportunity to participate in the care of this patient. Code(s): I48.91 - UNSPECIFIED ATRIAL FIBRILLATION (2) Diabetes Code(s): E11.9 - TYPE 2 DIABETES MELLITUS WITHOUT COMPLICATIONS (3) HTN (hypertension) Code(s): I10 - ESSENTIAL (PRIMARY) HYPERTENSION (4) Morbid obesity Code(s): E66.01 - MORBID (SEVERE) OBESITY DUE TO EXCESS CALORIES (5) Opioid dependence on agonist therapy Code(s): F11.20 - OPIOID DEPENDENCE, UNCOMPLICATED
--- NOTE | 2017-12-29 13:30 | CONSULT ---
Consult Detox [facility] Reason for Current Admission/Consult: h/o suboxone treatment - History History of Present Illness: Pt is admitted for recurrent diverticulitis. Pt is now getting morphine for pain control. Is using morphine every 3 hours. Pt has a h/o opioid addiction. Pt states he has not used heroin for a long time. Pt states he has not been using Suboxone for many months- even though he has an had an active prescription that ended at end of November. Pt is vague on what he does with the Suboxone- but states that he does not use the medications. Pt states that he does not want to continue on Suboxone MAT and does not want methadone MAT. Others' Prescriptions Patient Name: Eliecer Kasper Date: 1950 Address: [address] [place] [address] Sex: Male Rx Written Rx Dispensed Drug Quantity Days Supply Prescriber Name 11/06/2017 12/05/2017 lyrica 150 mg capsule 60 30 Adubor, Gonzalo Seaman 11/01/2017 11/06/2017 suboxone 8 mg-2 mg sl film 75 30 Kedar Lloyd MD 11/06/2017 11/06/2017 lyrica 150 mg capsule 60 30 Adubor, Gonzalo Seaman 10/04/2017 10/07/2017 suboxone 8 mg-2 mg sl film 75 30 Kedar Lloyd MD 09/23/2017 09/24/2017 lyrica 150 mg capsule 60 30 Adubor, Gonzalo Seaman 09/06/2017 09/06/2017 suboxone 8 mg-2 mg sl film 75 30 Kedar Lloyd MD 08/26/2017 08/29/2017 lyrica 75 mg capsule 90 30 Adubor, Gonzlao Seaman 08/28/2017 08/29/2017 lorazepam 1 mg tablet 5 5 Tosin Pang MD 07/22/2017 07/28/2017 lyrica 75 mg capsule 90 30 Adubor, Gonzalo Seaman 03/16/2017 06/30/2017 lyrica 75 mg capsule 90 30 Adubor, Gonzalo SeamanPt - Alcohol/Substance Use Hx Alcohol Use: No - Past Medical History Cardio/Vascular: Yes: AFIB, CHF, HTN Pulmonary: Yes: Sleep Apnea (r/u sleep apnea) Gastrointestinal: Yes: Constipation Hepatobiliary: Yes: Hepatitis C Psych: Yes: Other (addictive personality) Endocrine: Yes: Diabetes Mellitus Additional Medical History: obesity c/o Lap band COWS - Scale Resting Pulse: 0= [place] 80 or Below Sweatin= No chills or Flushing Restless Observation: 0= Sits Still Pupil Size: 0= Normal to Room Light Bone or Joint Aches: 0= None Runny Nose/ Eye Tearin= None GI Upset > 30mins: 0= None Tremor Observation: 0= None Yawning Observation: 0= None Anxiety or Irritability: 0= None (pt is sleeping) Goose Flesh Skin: 0=Smooth Skin COWS Score: 0 Assessment Plan - Diagnosis (1) Opiate dependence Status: Acute - Plan Plan: Pt is currently on morphine for pain control for diverticulitis. 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 At the present moment pt does not want to be on methadone or Suboxone for opioid addiction treatment, and does not think he has a substance use problem/ disorder. Please feel free to call us if we can be of further assistance: [phone].
[2017-12-29] MEDS ORDERED: HEPARIN NA (PORCINE) 5,000 UNITS/ML 1ML VIAL ONE ×2 (14:40→22:37)
--- NOTE | 2017-12-29 15:10 | PN ---
Physical Exam: SUBJECTIVE: Patient seen and examined at bedside this morning. Admits nausea, abdominal cramping, and pain worst at left lower abdominal quadrant. Endorses last bowel movement Friday that was non-blooody, not melanotic, and loosely formed. Denies fevers, chills, shortness of breath, chest pain, palpitations, vomiting. OBJECTIVE: Vital Signs Period Temp Pulse Resp BP Sys/Sr Pulse Ox Last 24 Hr 98.8 F 78-99 18-20 111-139/66-74 98-100 GENERAL: Patient is awake, alert, and fully oriented, in no acute distress. HEAD: Normocephalic, atraumatic EYES: PERRLA, extraocular movements intact, without nystagmus. Sclera anicteric , conjunctiva clear b/l. ENT: Oropharynx clear without exudates, or lesions. Dry mucous membranes. NECK: Trachea midline. Supple without lymphadenopathy or thyromegaly. LUNGS: Poor inspiratory effort. Breath sounds equal, clear to auscultation bilaterally. Bi-basilar crackles auscultated. No accessory muscle use. HEART: Regular rate and rhythm. S1, S2 auscultated without murmur, rub or gallop. ABDOMEN: Obese. Soft, nontender. Hypoactive bowel sounds X quadrants. No guarding. No rebound tenderness. No hepatosplenomegaly appreciated. EXTREMITIES: 2+ radial and 1+ dorsalis pedis pulses b/l. Lower extremities with chronic skin discoloration and lymphedema b/l. NEUROLOGICAL: Cranial nerves II through XII grossly intact. Normal speech. Strength 4/5 b/l upper and lower extremities b/l. PSYCH: Mood and affect appropriate upon my encounter. Laboratory Results - last 24 hr 12/28/17 12/28/17 12/28/17 14:20 14:20 22:32 WBC RBC Hgb Hct MCV MCH MCHC RDW Plt Count MPV Absolute Neuts (auto) Neutrophils % Lymphocytes % Monocytes % Eosinophils % Basophils % Nucleated RBC % Sodium Potassium Chloride Carbon Dioxide Anion Gap BUN Creatinine Creat Clearance w eGFR POC Glucometer [id number] Random Glucose Lactic Acid 2.0 Calcium Phosphorus Magnesium Total Bilirubin AST ALT Alkaline Phosphatase Troponin I 0.07 H Total Protein Albumin 12/29/17 12/29/17 06:00 07:18 WBC 7.4 RBC 4.53 Hgb 12.4 Hct 39.0 MCV 86.1 MCH 27.3 MCHC 31.7 L RDW 15.4 Plt Count 104 L MPV 9.9 Absolute Neuts (auto) 5.1 Neutrophils % 69.3 Lymphocytes % 19.1 Monocytes % 11.2 H D Eosinophils % 0.1 Basophils % 0.3 Nucleated RBC % 0 Sodium 138 Potassium 3.8 Chloride 101 Carbon Dioxide 29 Anion Gap 8 BUN 13 Creatinine 0.8 Creat Clearance w eGFR > 60 POC Glucometer Random Glucose 113 H Lactic Acid Calcium 8.5 Phosphorus 3.4 Magnesium 2.1 Total Bilirubin 1.0 AST 56 H ALT 31 Alkaline Phosphatase 74 Troponin I Total Protein 8.4 H Albumin 2.9 L Active Medications Generic Name Dose Route Start Last Admin Trade Name Freq PRN Reason Stop Dose Admin Carvedilol 25 mg 12/28/17 22:00 12/29/17 10:55 Coreg - PO 25 mg BID MIGUEL ÁNGEL Administration Ergocalciferol 50,000 unit 12/29/17 10:00 12/29/17 11:36 Drisdol - PO 50,000 unit Mo@1000 MIGUEL ÁNGEL Administration Heparin Sodium (Porcine) 5,000 unit 12/28/17 15:45 12/29/17 06:06 Heparin - SQ 5,000 unit TID [facility] Administration Insulin Aspart 1 vial 12/28/17 16:30 12/29/17 11:48 Novolog Vial Sliding Scale - SQ Not Given ACHS [facility] Protocol Morphine Sulfate 1 mg 12/29/17 10:38 Morphine Sulfate IVPUSH Q3H PRN PAIN LEVEL 6-10 Ondansetron HCl 4 mg 12/28/17 16:31 Zofran Injection IVPB Q8H PRN NAUSEA Pregabalin 150 mg 12/28/17 16:37 Lyrica - PO Q24H PRN NERVE PAIN ASSESSMENT/PLAN: Patient is a 67 year old male with history of morbid obesity (s/p lap band 2008) , diverticulitis, cholecystitis (s/p cholecystctomy), chronic constipation, ventral hernia (s/p repair 2017), Afib (s/p ablation, on Coreg, no anticoagulation), hypertension, diabetes, presents with abdominal pain for the past two days. Abdominal pain -May be secondary to diverticulosis, possible adhesions from prior abdominal surgeries vs. opiod withdrawal -CT abdomen pelvis (IV contrast): scattered diverticula within left colon. -Surgery consult (Dr. Ye) appreciated F/U CT abdomen/ pelvis with PO contrast. -ID consult (Dr. Dawson) appreciated, will observe off of antibiotics for now. -F/U GI consult (Dr. Ricks) -Morphine 1 mg Q3H PRN Opioid dependence -Patient last picked up Suboxone 10/2017, though states that he has not used it -Dr. To consult appreciated: Patient does not want methadone, or suboxone. Patient does not think he has a substance abuse problem. -Lyrica 150mg PO Q24H PRN for nerve pain Troponinemia -0.07 -> 0.07 -Cardiology consult (Dr. Zamarripa) appreciated: Will begin cardiac monitoring F/U- cardiac ECHO -F/U third troponin Afib -Patient is s/p ablation 2 years ago. Not on anticoagulation. -Continue Coreg 25mg PO BID Hypertension -Patient is on Coreg 25mg PO BID Diabetes -Hold oral hypoglycemics. -ISS ACHS -BGM ACHS FEN -No IV fluids. Encourage judicious oral hydration. -Follow CMP -Clear liquid diet. Prophylaxis -Heparin 5000u subq tid Disposition Continue care and monitoring in observation. Visit type - Emergency Visit Emergency Visit: Yes ED Registration Date: 12/28/17 Care time: The patient presented to the Emergency Department on the above date and was hospitalized for further evaluation of their emergent condition. - New Patient This patient is new to me today: Yes Date on this admission: 12/29/17 - Critical Care Critical Care patient: No - Discharge Referral Referred to [facility] No
--- NOTE | 2017-12-29 17:00 | CON.ID ---
Consult Consult Specialty:: infectious disease Referred by:: hospitalist Reason for Consultation:: possible diverticulitis - History of Present Illness Chief Complaint: abdominal pain History of Present Illness: 67 year old man with gastric lap band, recent hernia repair in 05/2107, chronic constipation, moves his bowels weekly developed abdominal after bowel movement this +nausea +dry heaves, unable to eat no fevers reports having pain like this but less every time he has a BM has been hospitalized for diverticulitis 2 years ago at [facility] ct scan reviewed with radiology no diverticulitis, no intra-abdominal pathology noted patient denies recent subaxone use received cipro and flagyl in ed for diverticulitis penicillin allergy- rash- no angioedema, no anaphlaxis, no hives - History Source History Provided By: Patient, Medical Record Limitations to Obtaining History: Clinical Condition - Past Medical History Cardio/Vascular: Yes: AFIB, CHF, HTN Pulmonary: Yes: Sleep Apnea (r/u sleep apnea) Gastrointestinal: Yes: Constipation, Other (hepatitis C- not yet treated) Hepatobiliary: Yes: Hepatitis C Psych: Yes: Other (addictive personality) Endocrine: Yes: Diabetes Mellitus Additional Medical History: obesity c/o Lap band - Past Surgical History Past Surgical History: Yes: Bariatric Surgery, Cholecystectomy, Hernia Repair Additional Surgical History: lap band - Alcohol/Substance Use Hx Alcohol Use: No History of Substance Use: reports: Heroin (1970) - Smoking History Smoking history: Current every day smoker Have you smoked in the past 12 months: Yes Aproximately how many cigarettes per day: 10 - Social History Usual Living Arrangement: With Spouse ADL: Independent Occupation: retired [employer] of [employer] History of Recent Travel: No Home Medications - Allergies Allergies/Adverse Reactions: Allergies Allergy/AdvReac Type Severity Reaction Status Date / Time Penicillins Allergy Mild Rash Verified 12/28/17 08:45 - Home Medications Home Medications: Ambulatory Orders Carvedilol [Coreg] 25 mg PO BID 07/03/14 Furosemide [Lasix -] 40 mg PO DAILY 07/03/14 Pioglitazone HCl/Metformin HCl [Pioglitazone-Metformin 15-500] 1 each PO BID 08/12 Pregabalin [Lyrica -] 75 mg PO DAILY PRN 07/03/14 Cholecalciferol (Vitamin D3) [Vitamin D3] 50,000 unit PO ASDIR 11/01/15 Docusate Sodium [Colace -] 100 mg PO Q8H PRN #0 capsule 11/07/15 Polyethylene Glycol 3350 [Miralax 119 gm Btl -] 17 gm PO BID bottle 11/07/15 Review of Systems - Review of Systems Eyes: reports: No Symptoms HENT: reports: No Symptoms Neck: reports: No Symptoms Cardiovascular: reports: No Symptoms. denies: Chest Pain Respiratory: denies: Cough Gastrointestinal: reports: Abdominal Pain, Constipation, Vomiting Genitourinary: reports: No Symptoms Physical Exam Vital Signs: Vital Signs Temperature 98.7 F 12/29/17 15:08 Pulse Rate 63 12/29/17 15:08 Respiratory Rate 18 12/29/17 15:08 Blood Pressure 121/56 L 12/29/17 15:08 O2 Sat by Pulse Oximetry (%) 100 12/29/17 15:08 Constitutional: Yes: Well Nourished, No Distress HENT: Yes: Atraumatic, Normocephalic Neck: Yes: Supple Cardiovascular: Yes: Regular Rate and Rhythm Respiratory: Yes: Regular, CTA Bilaterally Gastrointestinal: Yes: Abdomen, Obese, Other (lower abdominal pannus tendr to palpation- both lower quadrants) ...Rectal Exam: Yes: Deferred Extremities: Yes: WNL Edema: LLE: Trace, RLE: Trace Psychiatric: Yes: Alert, Oriented Labs: CBC, BMP 12/29/17 07:18 12/29/17 06:00 Imaging - Results Cat Scan: Report Reviewed, Image Reviewed (with Dr Zurita) Problem List - Problems (1) Abdominal pain Code(s): R10.9 - UNSPECIFIED ABDOMINAL PAIN (2) Hep C w/o coma, chronic Code(s): B18.2 - CHRONIC VIRAL HEPATITIS C (3) Morbid obesity Code(s): E66.01 - MORBID (SEVERE) OBESITY DUE TO EXCESS CALORIES (4) Penicillin allergy Code(s): Z88.0 - ALLERGY STATUS TO PENICILLIN Assessment/Plan nonspecific abdominal pain- d/w Dr Ye- he will re-evaluate patient plan repeat imaging- no fever or leukocytosis thrombocytopenia is chronic- ?hep c received cipro/flagyl- would observe off antibiotics for now if need to resume could use cephalosporin or carbapenem as pen allergy is mild (rash)
--- NOTE | 2017-12-29 17:21 | PN ---
Teaching Attending Note Name of Resident: Isma Palma ATTENDING PHYSICIAN STATEMENT I saw and evaluated the patient. I reviewed the resident's note and discussed the case with the resident. I agree with the resident's findings and plan as documented. SUBJECTIVE: Patient continues to have abdominal pain, less than yesterday, no fever or chills. Patient states that he keeps having this pain on and off. OBJECTIVE: Vital Signs Temperature 98.7 F 12/29/17 15:08 Pulse Rate 63 12/29/17 15:08 Respiratory Rate 18 12/29/17 15:08 Blood Pressure 121/56 L 12/29/17 15:08 O2 Sat by Pulse Oximetry (%) 100 12/29/17 15:08 GENERAL: Awake, alert, and fully oriented, in no acute distress. HEAD: Normal with no signs of trauma. EYES: Pupils equal, round and reactive to light, extraocular movements intact, sclera anicteric, conjunctiva clear. EARS, NOSE, THROAT: Ears normal, oropharynx clear without exudates. Moist mucous membranes. NECK: Normal range of motion, supple without lymphadenopathy, JVD, or masses. LUNGS: Breath sounds equal, clear to auscultation bilaterally. No wheezes, and no crackles. No accessory muscle use. HEART: Regular rate and rhythm, normal S1 and S2 without murmur, rub or gallop. ABDOMEN: Soft, diffuse tenderness is less today , large abdomen, voluntary guarding, no rebound, no masses. MUSCULOSKELETAL: Normal range of motion at all joints. No bony deformities or tenderness. No CVA tenderness. EXTREMITIES: 2+ pulses, warm, well-perfused. No cyanosis. No clubbing. No peripheral edema.chronic changes of lower extremity NEUROLOGICAL: Cranial nerves II-XII intact. Normal speech. gait not observed. PSYCHIATRIC: Cooperative. Good eye contact. Appropriate mood and affect. SKIN: chronic changes of;lower extremity normal capillary refill. CBCD WBC 7.4 K/mm3 (4.0-10.0) 12/29/17 07:18 RBC 4.53 M/mm3 (4.00-5.60) 12/29/17 07:18 Hgb 12.4 GM/dL (11.7-16.9) 12/29/17 07:18 Hct 39.0 % (35.4-49) 10/01/18 07:18 MCV 86.1 fl (80-96) 12/29/17 07:18 MCHC 31.7 g/dl (32.0-35.9) L 12/29/17 07:18 RDW 15.4 % (11.9-15.9) 12/29/17 07:18 Plt Count 104 K/MM3 (134-434) L 12/29/17 07:18 MPV 9.9 fl (7.5-11.1) 12/29/17 07:18 CMP Sodium 138 mmol/L (136-145) 12/29/17 06:00 Potassium 3.8 mmol/L (3.5-5.1) 12/29/17 06:00 Chloride 101 mmol/L (98-107) 12/29/17 06:00 Carbon Dioxide 29 mmol/L (21-32) 12/29/17 06:00 Anion Gap 8 MMOL/L (8-16) 12/29/17 06:00 BUN 13 mg/dL (7-18) 12/29/17 06:00 Creatinine 0.8 mg/dL (0.55-1.3) 12/29/17 06:00 Creat Clearance w eGFR > 60 (>60) 12/29/17 06:00 Random Glucose 113 mg/dL (74-106) H 12/29/17 06:00 Calcium 8.5 mg/dL (8.5-10.1) 12/29/17 06:00 Total Bilirubin 1.0 mg/dL (0.2-1) 12/29/17 06:00 AST 56 U/L (15-37) H 12/29/17 06:00 ALT 31 U/L (13-61) 12/29/17 06:00 Alkaline Phosphatase 74 U/L (45-117) 12/29/17 06:00 Total Protein 8.4 g/dl (6.4-8.2) H 12/29/17 06:00 Albumin 2.9 g/dl (3.4-5.0) L 12/29/17 06:00 CARDIAC ENZYMES Creatine Kinase 235 IU/L (26-308) 12/28/17 10:00 Troponin I 0.07 ng/ml (0.00-0.05) H 12/28/17 14:20 Current Medications Generic Name Dose Route Start Last Admin Trade Name Freq PRN Reason Stop Dose Admin Carvedilol 25 mg 12/28/17 22:00 12/29/17 10:55 Coreg - PO 25 mg BID MIGUEL ÁNGEL Administration Ergocalciferol 50,000 unit 12/29/17 10:00 12/29/17 11:36 Drisdol - PO 50,000 unit Mo@1000 MIGUEL ÁNGEL Administration Heparin Sodium (Porcine) 5,000 unit 12/28/17 15:45 12/29/17 14:49 Heparin - SQ 5,000 unit TID MIGUEL ÁNGEL Administration Insulin Aspart 1 vial 12/28/17 16:30 12/29/17 11:48 Novolog Vial Sliding Scale - SQ Not Given ACHS [facility] Protocol Morphine Sulfate 1 mg 12/29/17 10:38 12/29/17 16:35 Morphine Sulfate IVPUSH 1 mg Q3H PRN Administration PAIN LEVEL 6-10 Ondansetron HCl 4 mg 12/28/17 16:31 Zofran Injection IVPB Q8H PRN NAUSEA Pregabalin 150 mg 12/28/17 16:37 Lyrica - PO Q24H PRN NERVE PAIN Home Medications Medication Instructions Recorded Carvedilol [Coreg] 25 mg PO BID 07/03/14 Furosemide [Lasix -] 40 mg PO DAILY 07/03/14 Pioglitazone HCl/Metformin HCl 1 each PO BID 07/03/14 [Pioglitazone-Metformin 15-500] Pregabalin [Lyrica -] 75 mg PO DAILY PRN 07/03/14 Cholecalciferol (Vitamin D3) 50,000 unit PO ASDIR 11/01/15 [Vitamin D3] Docusate Sodium [Colace -] 100 mg PO Q8H PRN #0 capsule 11/07/15 Polyethylene Glycol 3350 [Miralax 17 gm PO BID bottle 11/07/15 119 gm Btl -] COMPARISON: May 17, 2017 FINDINGS: Again noted gastric lap band Again noted status post cholecystectomy Again noted 1 cm calcific density lower pole left kidney Again noted is a lower abdominal ventral hernia without evidence of obstruction Adjacent to the hernia are several small metallic type densities possibly secondary to a hernia type repair The liver, spleen, adrenal glands and pancreas are unremarkable. There is no hydronephrosis, renal masses There is no retroperitoneal lymphadenopathy. There is no abdominal aortic aneurysm. There are scattered diverticula of the left colon There are no inflammatory changes of the appendix. There are no fluid collections in the abdomen or pelvis. There is no bowel obstruction. The urinary bladder and prostate are unremarkable. IMPRESSION: Scattered diverticula of left colon. Possibly representing a chronic type of diverticulitis. Status post cholecystectomy Nonobstructing calculus lower pole left kidney Ventral hernia ASSESSMENT AND PLAN: Patient is 67 yo M with PMHx of afib (s/p ablation 2 years ago, on coreg, no AC) , diverticulitis (1 year prior, non surgical), cholecystitis (6 years prior, s/ p cholecystectomy), chronic constipation, ventral hernia repair (may 2017), hypertension, diabetes, presenting with abdominal pain, and vomiting for 2 days. #Abdominal pain: with hx of Gastric banding and recent hernia repair , will repeat CT of abdomen with oral contrast , GI and surgical consult is appreciated. continue with 1gm Morphine q3hr prn pain. #opioid dependence on Suboxone , last Suboxone use is on 10/2017, detox consult- Dr To appreciated #Mild elevation of troponins: likely due to demand in ischemia, no chest pain, card- Dr Bravo appreciated # afib (s/p ablation 2 years ago, on coreg, no AC), #chronic constipation #Hx of ventral hernia repair (may 2017) # Hypertension on coreg-25mg bid continue # T2DM Hold home metformin/pioglitazone, BGM ACHS # Morbid Obesity: Gastric bypass recommendation, needs to go back to his surgeon at [facility] for further care. # BPH further w/u as an outpatient DVT: Hep sq 5000 tid Tele obs
--- NOTE | 2017-12-29 18:12 | CON.GI ---
Consult Consult Specialty:: GI Referred by:: Hospitalist service Reason for Consultation:: Abdominal pain - History of Present Illness Chief Complaint: Abdominal pain History of Present Illness: 67M admitted through [facility] for evaluation of abdominal pain. He complains that he does not have a bowel movement for a week at a time. When he finally does, he develops abdominal cramps. This is a chronic pattern and "[place] shakes seems to make him have a bowel movement". he does not use laxatives at home despite miralax being listed as a home med. He also describes nausea and vomiting as well. He had an unrevealing non contrast CT scan in the ED. He denies rectal bleeding / diarrhea. He denies fevers/ chills. He thinks he had an attempted colonoscopy about 2 years ago that was incomplete due to poor bowel prep at [facility]. He alludes to them reattempting to bowel prep him with "two glass bottles of liquid" however he went into a.fib. He states that he has a high tolerance to pain medications and needs more. His father had a history of colon cancer. He gives a history of diverticulitis diagnosed and treated at [facility] in the past as well. - History Source History Provided By: Patient - Past Medical History Cardio/Vascular: Yes: AFIB, CHF, HTN Pulmonary: Yes: Sleep Apnea (r/u sleep apnea) Gastrointestinal: Yes: Constipation, Diverticulitis, Diverticulosis, Other ( hepatitis C- not yet treated) Hepatobiliary: Yes: Hepatitis C Psych: Yes: Other (addictive personality) Endocrine: Yes: Diabetes Mellitus Additional Medical History: Morbid obesity - Past Surgical History Past Surgical History: Yes: Bariatric Surgery (Lap Band), Cholecystectomy ( Laparoscopic), Hernia Repair (05/18, ventral hernia repair) Additional Surgical History: lap band - Alcohol/Substance Use Hx Alcohol Use: No History of Substance Use: reports: Cocaine (States last using in 1971), Heroin ( 1970) - Smoking History Smoking history: Current every day smoker (1/2 PPD) Have you smoked in the past 12 months: Yes Aproximately how many cigarettes per day: 10 - Social History Usual Living Arrangement: With Spouse ADL: Independent Occupation: retired [employer] of [employer] Place of : [facility] History of Recent Travel: No Home Medications - Allergies Allergies/Adverse Reactions: Allergies Allergy/AdvReac Type Severity Reaction Status Date / Time Penicillins Allergy Mild Rash Verified 12/28/17 08:45 - Home Medications Home Medications: Ambulatory Orders Carvedilol [Coreg] 25 mg PO BID 07/03/14 Furosemide [Lasix -] 40 mg PO DAILY 07/03/14 Pioglitazone HCl/Metformin HCl [Pioglitazone-Metformin 15-500] 1 each PO BID 08/12 Pregabalin [Lyrica -] 75 mg PO DAILY PRN 07/03/14 Cholecalciferol (Vitamin D3) [Vitamin D3] 50,000 unit PO ASDIR 11/01/15 Docusate Sodium [Colace -] 100 mg PO Q8H PRN #0 capsule 11/07/15 Polyethylene Glycol 3350 [Miralax 119 gm Btl -] 17 gm PO BID bottle 11/07/15 Family Disease History - Family Disease History Family Disease History: Other: Father (: history of colon cancer), Mother (Alive: healthy), Sister (2, 1 on dialysis), Daughter (1, healthy) Review of Systems - Review of Systems Cardiovascular: denies: Chest Pain Respiratory: reports: Wheezing Gastrointestinal: reports: Abdominal Pain, Constipation, Vomiting. denies: Diarrhea, Rectal Bleeding, Vomiting Blood Genitourinary: reports: Frequency Physical Exam-GI Vital Signs: Vital Signs Temperature 98.7 F 12/29/17 15:08 Pulse Rate 63 12/29/17 15:08 Respiratory Rate 18 12/29/17 15:08 Blood Pressure 121/56 L 12/29/17 15:08 O2 Sat by Pulse Oximetry (%) 100 12/29/17 15:08 Constitutional: Yes: Calm Eyes: No: Sclera Icterus Cardiovascular: Yes: Regular Rate and Rhythm. No: Murmur Respiratory: Yes: Wheezes (bilateral expiratory wheezing) Gastrointestinal Inspection: Yes: Scars (healed upper abdominal troahcar scars, + ? lap band port in mid abdomen that it tender to palpation, + healed midline vertical abdominal surgical scar. TTP in the left and right lower abdomen upon lifting his pannus.), Other (Large pannus) ...Rectal Exam: Yes: Other (+ external skin tag, no masses palpated, no fecal impaction, trace light brown stool, guaiac negative. 2+ prostate) Extremities: Yes: Other (chronic stasis changes bilateral lower extrmities) Edema: Yes Labs: CBC, BMP 12/29/17 07:18 12/29/17 06:00 INR, PTT INR 1.13 (0.83-1.09) H 12/28/17 10:00 Hepatic Panel Total Bilirubin 1.0 mg/dL (0.2-1) 12/29/17 06:00 AST 56 U/L (15-37) H 12/29/17 06:00 ALT 31 U/L (13-61) 12/29/17 06:00 Alkaline Phosphatase 74 U/L (45-117) 12/29/17 06:00 Albumin 2.9 g/dl (3.4-5.0) L 12/29/17 06:00 Imaging - Results Cat Scan: Report Reviewed (Ventral hernia, diverticulosis, non obstructing renal stone) Problem List - Problems (1) Abdominal pain Assessment/Plan: Unclear etiology Contrast CT scan being repeatedNPO, IV hydration Code(s): R10.9 - UNSPECIFIED ABDOMINAL PAIN Qualifiers: Abdominal location: right lower quadrant Qualified Code(s): R10.31 - Right lower quadrant pain (2) Enlarged prostate Assessment/Plan: Noted on GIOVANNY. Will need further evaluation per primary team Code(s): N40.0 - BENIGN PROSTATIC HYPERPLASIA WITHOUT LOWER URINRY TRACT SYMP
[2017-12-29] MEDS ORDERED: LORazepam 2 MG/ML SDV VIAL IVPUSH ONE ×2 (21:18→22:20)
[2017-12-29] MEDS ORDERED: LORazepam 20 MG/10 ML 10 ML MDV ONE (22:36)
[2017-12-30] MEDS: CARVEDILOL 25 MG TABLET (FP) PO SCH ×2 (00:44→11:20)
[2017-12-30] MEDS: INSULIN SLIDING SCALE (NOVOLOG) 1 VIAL SQ SCH ×2 (06:31→12:00)
[2017-12-30] MEDS: HEPARIN NA (PORCINE) 5,000 UNITS/ML 1ML VIAL SQ SCH ×2 (06:33→15:26)
[2017-12-30 06:37] LABS: HEMATOCRIT 36.4 % (35.4-49); HEMOGLOBIN 11.6 GM/dL (11.7-16.9); MCH 27.3 pg (25.7-33.7); MCHC 31.9 g/dl (32.0-35.9); MEAN CELL VOLUME 85.4 fl (80-96); PLATELET COUNT 104 K/MM3 (134-434); RBC 4.27 M/mm3 (4.00-5.60); RDW 15.2 % (11.9-15.9); WHITE BLOOD COUNT 5.9 K/mm3 (4.0-10.0)
[2017-12-30 07:07] LABS: ALBUMIN 2.7 g/dl (3.4-5.0); ALK PHOS 64 U/L (45-117); ANION GAP 7 MMOL/L (8-16); BILIRUBIN,TOTAL 0.7 mg/dL (0.2-1); BLOOD UREA NITROGEN 16 mg/dL (7-18); CALCIUM 8.2 mg/dL (8.5-10.1); CHLORIDE 103 mmol/L (98-107); CO2 28 mmol/L (21-32); CREATININE 0.7 mg/dL (0.55-1.3); GLUCOSE,RANDOM 91 mg/dL (74-106); MAGNESIUM 1.8 mg/dL (1.8-2.4); POTASSIUM 3.6 mmol/L (3.5-5.1); SGOT/AST 53 U/L (15-37); SGPT/ALT 28 U/L (13-61); SODIUM 138 mmol/L (136-145); TOT PROT 7.3 g/dl (6.4-8.2)
--- NOTE | 2017-12-30 07:57 | PN ---
Physical Exam: SUBJECTIVE: Patient seen and examined at bedside this morning. Still admits abdominal pain, and nausea relatively unchanged from yesterday. Denies bowel movement yesterday and overnight. Denies fevers, chills, shortness of breath, chest pain, palpitations, vomiting. OBJECTIVE: Vital Signs Period Temp Pulse Resp BP Sys/Sr Pulse Ox Last 24 Hr 98.4 F-98.7 F 56-82 18-18 121-167/56-82 96-100 GENERAL: Patient is awake, alert, and fully oriented, in no acute distress. HEAD: Normocephalic, atraumatic EYES: PERRLA, extraocular movements intact, without nystagmus. Sclera anicteric , conjunctiva clear b/l. ENT: Oropharynx clear without exudates, or lesions. Dry mucous membranes. NECK: Trachea midline. Supple without lymphadenopathy or thyromegaly. LUNGS: Poor inspiratory effort. Breath sounds equal, clear to auscultation bilaterally. Bi-basilar crackles auscultated. No accessory muscle use. HEART: Regular rate and rhythm. S1, S2 auscultated without murmur, rub or gallop. ABDOMEN: Obese. Soft, diffusely tender to palpation. Hypoactive bowel sounds X4 quadrants. No guarding. No rebound tenderness. No hepatosplenomegaly appreciated. EXTREMITIES: 2+ radial and 1+ dorsalis pedis pulses b/l. Lower extremities with chronic skin discoloration, thickened and hardened, lymphedema b/l. NEUROLOGICAL: Cranial nerves II through XII grossly intact. Normal speech. Strength 4/5 b/l upper and lower extremities b/l. PSYCH: Mood and affect appropriate upon my encounter. Laboratory Results - last 24 hr 12/29/17 12/29/17 12/29/17 06:00 11:44 22:53 WBC RBC Hgb Hct MCV MCH MCHC RDW Plt Count MPV Sodium 138 Potassium 3.8 Chloride 101 Carbon Dioxide 29 Anion Gap 8 BUN 13 Creatinine 0.8 Creat Clearance w eGFR > 60 POC Glucometer 138.11071 109.77463 Random Glucose 113 H Calcium 8.5 Phosphorus 3.4 Magnesium 2.1 Total Bilirubin 1.0 AST 56 H ALT 31 Alkaline Phosphatase 74 Total Protein 8.4 H Albumin 2.9 L 12/30/17 12/30/17 12/30/17 05:30 05:30 06:29 WBC 5.9 RBC 4.27 Hgb 11.6 L Hct 36.4 MCV 85.4 MCH 27.3 MCHC 31.9 L RDW 15.2 Plt Count 104 L MPV 10.0 Sodium 138 Potassium 3.6 Chloride 103 Carbon Dioxide 28 Anion Gap 7 L BUN 16 Creatinine 0.7 Creat Clearance w eGFR > 60 POC Glucometer 105 Random Glucose 91 Calcium 8.2 L Phosphorus 4.0 Magnesium 1.8 Total Bilirubin 0.7 AST 53 H ALT 28 Alkaline Phosphatase 64 Total Protein 7.3 Albumin 2.7 L Active Medications Generic Name Dose Route Start Last Admin Trade Name Freq PRN Reason Stop Dose Admin Carvedilol 25 mg 12/28/17 22:00 12/30/17 00:44 Coreg - PO Not Given BID [facility] Ergocalciferol 50,000 unit 12/29/17 10:00 12/29/17 11:36 Drisdol - PO 50,000 unit Mo@1000 [facility] Administration Heparin Sodium (Porcine) 5,000 unit 12/28/17 15:45 12/30/17 06:33 Heparin - SQ 5,000 unit TID [facility] Administration Insulin Aspart 1 vial 12/28/17 16:30 12/30/17 06:31 Novolog Vial Sliding Scale - SQ Not Given ACHS [facility] Protocol Morphine Sulfate 1 mg 12/29/17 10:38 12/29/17 16:35 Morphine Sulfate IVPUSH 1 mg Q3H PRN Administration PAIN LEVEL 6-10 Ondansetron HCl 4 mg 12/28/17 16:31 Zofran Injection IVPB Q8H PRN NAUSEA Pregabalin 150 mg 12/28/17 16:37 Lyrica - PO Q24H PRN NERVE PAIN ASSESSMENT/PLAN: Patient is a 67 year old male with history of morbid obesity (s/p lap band 2008) , diverticulitis, cholecystitis (s/p cholecystctomy), chronic constipation, ventral hernia (s/p repair 2017), Afib (s/p ablation, on Coreg, no anticoagulation), hypertension, diabetes, presents with abdominal pain for the past two days. Abdominal pain -May be secondary to diverticulosis, possible adhesions from prior abdominal surgeries vs. opiod withdrawal -CT abdomen pelvis (IV contrast): scattered diverticula within left colon. -CT abdomen/ pelvis with PO contrast shows left nephrolitiasis without obstructive uropathy. -Surgery consult (Dr. Ye) appreciated -ID consult (Dr. Dawson) appreciated, will observe off of antibiotics for now. Diverticulosis without evidence of diverticulitis or acute abdominal pathology. -GI consult (Dr. Ricks) appreciated. -Morphine 1 mg Q3H PRN Opioid dependence -Patient last picked up Suboxone 10/2017, though states that he has not used it -Dr. To consult appreciated: Patient does not want methadone, or suboxone. Patient does not think he has a substance abuse problem. -Lyrica 150mg PO Q24H PRN for nerve pain Troponinemia -0.07 -> 0.07 -Cardiology consult (Dr. Zaamrripa) appreciated: Will begin cardiac monitoring F/U- cardiac ECHO -F/U third troponin Afib -Patient is s/p ablation 2 years ago. Not on anticoagulation. -Continue Coreg 25mg PO BID Hypertension -Patient is on Coreg 25mg PO BID Diabetes -Hold oral hypoglycemics. -ISS ACHS -BGM ACHS FEN -No IV fluids. Encourage judicious oral hydration. -Follow CMP -Clear liquid diet. Prophylaxis -Heparin 5000u subq tid Disposition Continue care and monitoring in observation.
--- NOTE | 2017-12-30 08:14 | PN ---
Teaching Attending Note Name of Resident: Isma Rubensshreya ATTENDING PHYSICIAN STATEMENT I saw and evaluated the patient. I reviewed the resident's note and discussed the case with the resident. I agree with the resident's findings and plan as documented. SUBJECTIVE: Patient has no pain today, comfortable with no acute distress. No shortness of breath OBJECTIVE: Vital Signs Temperature 98.7 F 12/30/17 05:00 Pulse Rate 82 12/30/17 05:00 Respiratory Rate 18 12/30/17 05:00 Blood Pressure 134/64 12/30/17 05:00 O2 Sat by Pulse Oximetry (%) 97 12/30/17 04:00 GENERAL: Awake, alert, answers to questions appropiately. in no acute distress. HEAD: Normal with no signs of trauma. EYES: Pupils equal, round and reactive to light, extraocular movements intact, sclera anicteric, conjunctiva clear. EARS, NOSE, THROAT: Ears normal, nares patent, oropharynx clear without exudates. Moist mucous membranes. NECK: Normal range of motion, supple without lymphadenopathy, JVD, or masses. LUNGS: Breath sounds equal, clear to auscultation bilaterally. No wheezes, and no crackles. No accessory muscle use. HEART: Regular rate and rhythm, normal S1 and S2 without murmur, rub or gallop. ABDOMEN: Soft, large abdomen, Nontender today , no guarding, no rebound, no masses appreciated. EXTREMITIES: 2+ pulses, warm, well-perfused. No cyanosis. No clubbing. No peripheral edema. NEUROLOGICAL: Cranial nerves II-XII intact. Normal speech. PSYCHIATRIC: Cooperative. Good eye contact. Appropriate mood and affect. SKIN: chronic changes of lower extremity, normal capillary refill. CBCD WBC 5.9 K/mm3 (4.0-10.0) 12/30/17 05:30 RBC 4.27 M/mm3 (4.00-5.60) 12/30/17 05:30 Hgb 11.6 GM/dL (11.7-16.9) L 12/30/17 05:30 Hct 36.4 % (35.4-49) 12/30/17 05:30 MCV 85.4 fl (80-96) 12/30/17 05:30 MCHC 31.9 g/dl (32.0-35.9) L 12/30/17 05:30 RDW 15.2 % (11.9-15.9) 12/30/17 05:30 Plt Count 104 K/MM3 (134-434) L 12/30/17 05:30 MPV 10.0 fl (7.5-11.1) 12/30/17 05:30 CMP Sodium 138 mmol/L (136-145) 12/30/17 05:30 Potassium 3.6 mmol/L (3.5-5.1) 12/30/17 05:30 Chloride 103 mmol/L (98-107) 12/30/17 05:30 Carbon Dioxide 28 mmol/L (21-32) 12/30/17 05:30 Anion Gap 7 MMOL/L (8-16) L 12/30/17 05:30 BUN 16 mg/dL (7-18) 12/30/17 05:30 Creatinine 0.7 mg/dL (0.55-1.3) 12/30/17 05:30 Creat Clearance w eGFR > 60 (>60) 12/30/17 05:30 Random Glucose 91 mg/dL (74-106) 12/30/17 05:30 Calcium 8.2 mg/dL (8.5-10.1) L 12/30/17 05:30 Total Bilirubin 0.7 mg/dL (0.2-1) 12/30/17 05:30 AST 53 U/L (15-37) H 12/30/17 05:30 ALT 28 U/L (13-61) 12/30/17 05:30 Alkaline Phosphatase 64 U/L (45-117) 12/30/17 05:30 Total Protein 7.3 g/dl (6.4-8.2) 12/30/17 05:30 Albumin 2.7 g/dl (3.4-5.0) L 12/30/17 05:30 CARDIAC ENZYMES Creatine Kinase 235 IU/L (26-308) 12/28/17 10:00 Troponin I 0.07 ng/ml (0.00-0.05) H 12/28/17 14:20 Current Medications Generic Name Dose Route Start Last Admin Trade Name Freq PRN Reason Stop Dose Admin Carvedilol 25 mg 12/28/17 22:00 12/30/17 00:44 Coreg - PO Not Given BID MIGUEL ÁNGEL Ergocalciferol 50,000 unit 12/29/17 10:00 12/29/17 11:36 Drisdol - PO 50,000 unit Mo@1000 MIGUEL ÁNGEL Administration Heparin Sodium (Porcine) 5,000 unit 12/28/17 15:45 12/30/17 06:33 Heparin - SQ 5,000 unit TID MIGUEL ÁNGEL Administration Insulin Aspart 1 vial 12/28/17 16:30 12/30/17 06:31 Novolog Vial Sliding Scale - SQ Not Given ACHS [facility] Protocol Morphine Sulfate 1 mg 12/29/17 10:38 12/29/17 16:35 Morphine Sulfate IVPUSH 1 mg Q3H PRN Administration PAIN LEVEL 6-10 Ondansetron HCl 4 mg 12/28/17 16:31 Zofran Injection IVPB Q8H PRN NAUSEA Pregabalin 150 mg 12/28/17 16:37 Lyrica - PO Q24H PRN NERVE PAIN Home Medications Medication Instructions Recorded Carvedilol [Coreg] 25 mg PO BID 07/03/14 Furosemide [Lasix -] 40 mg PO DAILY 07/03/14 Pioglitazone HCl/Metformin HCl 1 each PO BID 07/03/14 [Pioglitazone-Metformin 15-500] Pregabalin [Lyrica -] 75 mg PO DAILY PRN 07/03/14 Cholecalciferol (Vitamin D3) 50,000 unit PO ASDIR 11/01/15 [Vitamin D3] Docusate Sodium [Colace -] 100 mg PO Q8H PRN #0 capsule 11/07/15 Polyethylene Glycol 3350 [Miralax 17 gm PO BID bottle 11/07/15 119 gm Btl -] COMPARISON: May 17, 2017 FINDINGS: Again noted gastric lap band Again noted status post cholecystectomy Again noted 1 cm calcific density lower pole left kidney Again noted is a lower abdominal ventral hernia without evidence of obstruction Adjacent to the hernia are several small metallic type densities possibly secondary to a hernia type repair The liver, spleen, adrenal glands and pancreas are unremarkable. There is no hydronephrosis, renal masses There is no retroperitoneal lymphadenopathy. There is no abdominal aortic aneurysm. There are scattered diverticula of the left colon There are no inflammatory changes of the appendix. There are no fluid collections in the abdomen or pelvis. There is no bowel obstruction. The urinary bladder and prostate are unremarkable. IMPRESSION: Scattered diverticula of left colon. Possibly representing a chronic type of diverticulitis. Status post cholecystectomy Nonobstructing calculus lower pole left kidney Ventral hernia ASSESSMENT AND PLAN: 67 yo M with PMHx of afib (s/p ablation 2 years ago, on coreg, no AC), diverticulitis (1 year prior, non surgical), cholecystitis (6 years prior, s/p cholecystectomy), chronic constipation, ventral hernia repair (may 2017), hypertension, diabetes, presenting with abdominal pain, and vomiting for 2 days. #Abdominal pain: improved, denies having any further pain, with hx of Gastric bypass and recent hernia repair. most likely the pain is due to gastric band since CT scan with oral contrast shows scattered diverticulum of left colon without diverticulitis. repeat CT scan confirmed no acute intra-abdominal pathology. Folllow up with Dr. La, bariatrics at [facility] for revision surgery #opioid dependence on Suboxone , last Suboxone use is on 10/2017, detox consult- Dr To #Mild elevation of troponins: likely due to demand in ischemia, no chest pain at did time, discussed with dr. Bravo, cardiac standpoint patient can be discharged home. Pt is followed by power originator Dr. Monae Ambrocio, tel [phone] (office). As per patient stated that his power originator did a stress MIBI earler this year that was normal. # afib (s/p ablation 2 years ago, on coreg, no AC), #chronic constipation increase the vegetable intake, fiber and water #Hx of ventral hernia repair (may 2017) # Hypertension on coreg-25mg bid continue # T2DM Hold home metformin/pioglitazone, continue home meds # Enlarged Prostate, further w/u as an outpatient. discharge patient home with follow up visit to Bariatric surgeon ay [facility]
--- NOTE | 2017-12-30 10:29 | PN ---
Progress Note, Physician Chief Complaint: abdominal pain History of Present Illness: 67yo male Afib, Hepatitis C, HTN, CHF, DM type 2, Diverticular disease, Morbid obesity s/p Lap band 2008, s/p ventral hernia Repair May 2017 at [facility] presented to the ED with recurrent diffuse abdominal pain, constipation and nausea. - Current Medication List Current Medications: Active Medications Carvedilol (Coreg -) 25 mg PO BID [facility] Last Admin: 12/30/17 00:44 Dose: Not Given Ergocalciferol (Drisdol -) 50,000 unit PO Mo@1000 [facility] Last Admin: 12/29/17 11:36 Dose: 50,000 unit Heparin Sodium (Porcine) (Heparin -) 5,000 unit SQ TID [facility] Last Admin: 12/30/17 06:33 Dose: 5,000 unit Insulin Aspart (Novolog Vial Sliding Scale -) 1 vial SQ ACHS [facility]; Protocol Last Admin: 12/30/17 06:31 Dose: Not Given Morphine Sulfate (Morphine Sulfate) 1 mg IVPUSH Q3H PRN PRN Reason: PAIN LEVEL 6-10 Last Admin: 12/29/17 16:35 Dose: 1 mg Ondansetron HCl (Zofran Injection) 4 mg IVPB Q8H PRN PRN Reason: NAUSEA Pregabalin (Lyrica -) 150 mg PO Q24H PRN PRN Reason: NERVE PAIN - Objective Vital Signs: Vital Signs Temperature 98.7 F 12/30/17 05:00 Pulse Rate 82 12/30/17 05:00 Respiratory Rate 18 12/30/17 05:00 Blood Pressure 134/64 12/30/17 05:00 O2 Sat by Pulse Oximetry (%) 97 12/30/17 04:00 Vital Signs Period Temp Pulse Resp BP Sys/Sr Pulse Ox Last 24 Hr 98.4 F-98.7 F 56-82 -18 121-167/56-82 96-100 Constitutional: Yes: No Distress, Calm, Obese Eyes: Yes: Conjunctiva Clear, EOM Intact HENT: Yes: Atraumatic, Normocephalic Neck: Yes: Supple, Trachea Midline Cardiovascular: Yes: Regular Rate and Rhythm, S1, S2 Respiratory: Yes: Regular, CTA Bilaterally Gastrointestinal: Yes: Normal Bowel Sounds, Soft, Abdomen, Obese. No: Distention, Tenderness, Tenderness, Epigastrium, Tenderness, Rebound ...Rectal Exam: Yes: Deferred Genitourinary: No: CVA Tenderness - Left, CVA Tenderness - Right Musculoskeletal: No: Muscle Pain, Muscle Weakness Extremities: No: Cool, Cyanosis Edema: Yes Edema: LLE: 2+, RLE: 2+ Peripheral Pulses WNL: Yes Integumentary: Yes: Venous Stasis Changes Neurological: Yes: Alert, Oriented Psychiatric: Yes: Alert, Oriented Labs: CBC, BMP 12/30/17 05:30 12/30/17 05:30 INR, PTT INR 1.13 (0.83-1.09) H 12/28/17 10:00 Problem List - Problems (1) Atrial fibrillation with tachycardic ventricular rate Assessment/Plan: 67yo male MMP including morbid obesity, chronic constipation, lapband 2008 and a recently repaired ventral hernia May 2017 at [facility]. He has a CTscan that that shows scattered diverticulum left colon without diverticulitis. There is also not a significant stool burden on the scan. He does not have a hernia related pain. repeat CTscan confirmed no acute intraabdominal pathology. his gastric ban is likely the cause of his dry heaving. Diet as tolerated IVF hydation adequate analgesia antemetic therapy Folllow up with Dr. La, bariatrics at [facility] for revision surgery Code(s): I48.91 - UNSPECIFIED ATRIAL FIBRILLATION (2) Diabetes Code(s): E11.9 - TYPE 2 DIABETES MELLITUS WITHOUT COMPLICATIONS (3) HTN (hypertension) Code(s): I10 - ESSENTIAL (PRIMARY) HYPERTENSION (4) Morbid obesity Code(s): E66.01 - MORBID (SEVERE) OBESITY DUE TO EXCESS CALORIES (5) Opioid dependence on agonist therapy Code(s): F11.20 - OPIOID DEPENDENCE, UNCOMPLICATED
[2017-12-30] MEDS: MORPHINE SULFATE 2 MG/ML VIAL IVPUSH PRN ×2 (11:20→15:26)
[2017-12-30 15:03] VITALS: PULSE 78; TEMP 98.5
[2017-12-30 15:05] VITALS: BP 156/86
--- NOTE | 2017-12-30 15:15 | PN ---
Progress Note, Physician Chief Complaint: Pt A&O, but easily falls asleep (sitting in a chair). His is at bedside. History of Present Illness: 67 year old black male with morbid obesity, sleep apnea (does not tolerate CPAP mask)afib (on coreg, no AC--pt says he "does not need it"; denies hx bleeding; says he had PAF only twice in the past 4 years)), diverticulitis (1 year prior, non surgical), cholecysitis (6 years prior, s/p cholecystectomy), chronic constipation, and 6 months s/p hernia repair with mesh presenting with 1.5 days of nausea, vomiting, and abdominal pain. States that he has been constipated for the past three days which is not unusual for him. He attempted to "move his bowels" by eating [place] burgers and a milkshake which typically helps him achieve relief. He was able to defecate but had severe abdominal pain afterwards along 3with vomiting since. The vomit is NBNB and he denies any blood in his stool. His last BM was this AM and he is passing gas. States he had some subjective warmth this morning as well. Denies any chest pain, SOB, diaphoresis, or other symptoms. Pt is followed by assistant vice president Dr. Monae Ambrocio, tel [phone] (office ). Pt says he is planning to have gastric bypass surgery. - Current Medication List Current Medications: Active Medications Carvedilol (Coreg -) 25 mg PO BID [facility] Last Admin: 12/30/17 11:20 Dose: 25 mg Ergocalciferol (Drisdol -) 50,000 unit PO Mo@1000 [facility] Last Admin: 12/29/17 11:36 Dose: 50,000 unit Heparin Sodium (Porcine) (Heparin -) 5,000 unit SQ TID [facility] Last Admin: 12/30/17 06:33 Dose: 5,000 unit Insulin Aspart (Novolog Vial Sliding Scale -) 1 vial SQ ACHS [facility]; Protocol Last Admin: 12/30/17 06:31 Dose: Not Given Morphine Sulfate (Morphine Sulfate) 1 mg IVPUSH Q3H PRN PRN Reason: PAIN LEVEL 6-10 Last Admin: 12/30/17 11:20 Dose: 1 mg Ondansetron HCl (Zofran Injection) 4 mg IVPB Q8H PRN PRN Reason: NAUSEA Pregabalin (Lyrica -) 150 mg PO Q24H PRN PRN Reason: NERVE PAIN - Objective Vital Signs: Vital Signs Temperature 98.5 F 12/30/17 14:00 Pulse Rate 78 12/30/17 14:00 Respiratory Rate 20 12/30/17 14:00 Blood Pressure 156/86 12/30/17 10:00 O2 Sat by Pulse Oximetry (%) 97 12/30/17 04:00 Constitutional: Yes: Obese Eyes: Yes: WNL HENT: Yes: WNL Neck: Yes: WNL Cardiovascular: Yes: Regular Rate and Rhythm Respiratory: Yes: Regular Gastrointestinal: Yes: Abdomen, Obese ...Rectal Exam: Yes: Deferred Genitourinary: No: Anuria Breast(s): Yes: WNL Musculoskeletal: Yes: Muscle Weakness Extremities: Yes: Cool Edema: Yes Edema: LLE: Trace, RLE: Trace Peripheral Pulses WNL: Yes Integumentary: Yes: Venous Stasis Changes Neurological: Yes: Alert, Oriented, Weakness Psychiatric: Yes: Alert, Oriented Labs: CBC, BMP 12/30/17 05:30 12/30/17 05:30 INR, PTT INR 1.13 (0.83-1.09) H 12/28/17 10:00 - ....Imaging EKG: Image Reviewed (normal study) Problem List - Problems (1) Abdominal pain Code(s): R10.9 - UNSPECIFIED ABDOMINAL PAIN Qualifiers: Abdominal location: right lower quadrant Qualified Code(s): R10.31 - Right lower quadrant pain (2) Diverticulitis Code(s): K57.92 - DVTRCLI OF INTEST, PART UNSP, W/O PERF OR ABSCESS W/O BLEED (3) Elevated troponin I level Assessment/Plan: mild elevation (0.07 x 2); CK WNL. Pt (with present) says his assistant vice president did a stress MIBI earler this year that was normal. Code(s): R74.8 - ABNORMAL LEVELS OF OTHER SERUM ENZYMES (4) Enlarged prostate Code(s): N40.0 - BENIGN PROSTATIC HYPERPLASIA WITHOUT LOWER URINRY TRACT SYMP (5) Atrial fibrillation with tachycardic ventricular rate Assessment/Plan: Pt says his doctor says he does not need to be on anticoagulation, but he is unable to express why. He does say he has had "only 2 epsodes of AF in the past 4 years". On carvedilol for HR control. Pt says he had a stress test by Dr. Ambrocio earlier this year, and it was "fine" (a message was left on her answering service) If ECHO shows no significant pathology, pt may be followed as outparient from cardiac standpoint. Code(s): I48.91 - UNSPECIFIED ATRIAL FIBRILLATION (6) Cigarette nicotine dependence Code(s): F17.210 - NICOTINE DEPENDENCE, CIGARETTES, UNCOMPLICATED (7) Diabetes Code(s): E11.9 - TYPE 2 DIABETES MELLITUS WITHOUT COMPLICATIONS (8) [place] cardiac risk >20% in next 10 years Code(s): Z91.89 - OTH PERSONAL RISK FACTORS, NOT ELSEWHERE CLASSIFIED (9) HTN (hypertension) Code(s): I10 - ESSENTIAL (PRIMARY) HYPERTENSION (10) Morbid obesity Assessment/Plan: hx gastric band surgery in the past; plans to have it done again. Code(s): E66.01 - MORBID (SEVERE) OBESITY DUE TO EXCESS CALORIES (11) Sleep apnea Assessment/Plan: see above Code(s): G47.30 - SLEEP APNEA, UNSPECIFIED
--- NOTE | 2017-12-30 17:22 | DS ---
Physical Exam: SUBJECTIVE: Patient seen and examined at bedside this morning. Admits improvement of abdominal pain, and nausea. Denies bowel movement yesterday and overnight. Denies fevers, chills, shortness of breath, chest pain, palpitations , vomiting. OBJECTIVE: Vital Signs Period Temp Pulse Resp BP Sys/Sr Pulse Ox Last 24 Hr 98 F-98.7 F 56-88 18-20 134-167/64-86 96-97 PHYSICAL EXAM GENERAL: Patient is awake, alert, and fully oriented, in no acute distress. HEAD: Normocephalic, atraumatic EYES: PERRLA, extraocular movements intact, without nystagmus. Sclera anicteric , conjunctiva clear b/l. ENT: Oropharynx clear without exudates, or lesions. Dry mucous membranes. NECK: Trachea midline. Supple without lymphadenopathy or thyromegaly. LUNGS: Poor inspiratory effort. Breath sounds equal, clear to auscultation bilaterally. Bi-basilar crackles auscultated. No accessory muscle use. HEART: Regular rate and rhythm. S1, S2 auscultated without murmur, rub or gallop. ABDOMEN: Obese. Soft, diffusely tender to palpation. Hypoactive bowel sounds X4 quadrants. No guarding. No rebound tenderness. No hepatosplenomegaly appreciated. EXTREMITIES: 2+ radial and 1+ dorsalis pedis pulses b/l. Lower extremities with chronic skin discoloration, thickened and hardened, lymphedema b/l. NEUROLOGICAL: Cranial nerves II through XII grossly intact. Normal speech. Strength 4/5 b/l upper and lower extremities b/l. PSYCH: Mood and affect appropriate upon my encounter. LABS Laboratory Results - last 24 hr 12/29/17 12/29/17 12/30/17 19:51 22:53 05:30 WBC 5.9 RBC 4.27 Hgb 11.6 L Hct 36.4 MCV 85.4 MCH 27.3 MCHC 31.9 L RDW 15.2 Plt Count 104 L MPV 10.0 Sodium Potassium Chloride Carbon Dioxide Anion Gap BUN Creatinine Creat Clearance w eGFR POC Glucometer 122.13758 109.26855 Random Glucose Calcium Phosphorus Magnesium Total Bilirubin AST ALT Alkaline Phosphatase Total Protein Albumin 12/30/17 12/30/17 12/30/17 05:30 06:29 11:54 WBC RBC Hgb Hct MCV MCH MCHC RDW Plt Count MPV Sodium 138 Potassium 3.6 Chloride 103 Carbon Dioxide 28 Anion Gap 7 L BUN 16 Creatinine 0.7 Creat Clearance w eGFR > 60 POC Glucometer 105 94 Random Glucose 91 Calcium 8.2 L Phosphorus 4.0 Magnesium 1.8 Total Bilirubin 0.7 AST 53 H ALT 28 Alkaline Phosphatase 64 Total Protein 7.3 Albumin 2.7 L HOSPITAL COURSE: Date of Admission:12/28/17 Date of Discharge: 12/30/17 Patient is a 67 year old male with history of morbid obesity (s/p lap band 2008) , diverticulitis, cholecystitis (s/p cholecystctomy), chronic constipation, ventral hernia (s/p repair 2017), Afib (s/p ablation, on Coreg, no anticoagulation), hypertension, diabetes, presents with abdominal pain for the past two days. CT abdomen pelvis (IV contrast) showed scattered diverticula within left colon. CT abdomen/ pelvis with PO contrast shows left nephrolitiasis without obstructive uropathy, and diverticulosis. ID discussed observing him without antibiotics. Surgical consult discussed that his lap band may be source of his discomfort. GI consult discussed keeping him NPO and IV hydration. Enlarged prostate noted on GIOVANNY to follow up with primary care physician. Cardiology consult discussed follow up as outpatient regarding his Afib. Detox consult discussed that patient did not want methadone, or suboxone. Patient does not think he has a substance abuse problem. Patient encouraged to participate in detox program as outpatient. He was discharged to follow up with primary care physician, casino floor person, and surgeon within one week of discharge. Minutes to complete discharge: 45 Discharge Summary Reason For Visit: ELEVATED TROPONIN LEVEL, ABD PAIN Current Active Problems Abdominal pain (Acute) Diverticulitis (Acute) Elevated troponin I level (Acute) Enlarged prostate (Acute) Hep C w/o coma, chronic (Acute) Intractable abdominal pain (Acute) Penicillin allergy (Acute) Condition: Improved - Instructions Diet, Activity, Other Instructions: You came in with abdominal pain and shortness of breath Blood tests did not show any damage to your heart You may follow up with a casino floor person as an outpatient CAT scan of the abdomen with contrast did not show any acute problems. You will not need any surgical interventions at this time. Your pain has improved. Please follow up with your surgeon for the lap band as that could contribute to some of your symptoms You were offered detoxication from opiates that you declined We are discharging you home We recommend out-patient detoxication from opiates Please follow up with your primary care doctor in one week Continue all your medications as prescribed If you feel our symptoms are worsening with inability to pass gas or stool, bloody stools or dark stools, continous vomiting or worsening pain not controlled with medications, please return to the nearest emergency room Referrals: Wilian Partida [Other] - 1 Week Alberto Mauricio [Primary Care Provider] - 1 Week Rad Bravo MD [Staff Physician] - 1 Week Disposition: HOME - Home Medications Comprehensive Discharge Medication List: Ambulatory Orders Carvedilol [Coreg] 25 mg PO BID 07/03/14 Furosemide [Lasix -] 40 mg PO DAILY 07/03/14 Pioglitazone HCl/Metformin HCl [Pioglitazone-Metformin 15-500] 1 each PO BID 08/12 Pregabalin [Lyrica -] 75 mg PO DAILY PRN 07/03/14 Cholecalciferol (Vitamin D3) [Vitamin D3] 50,000 unit PO ASDIR 11/01/15 Docusate Sodium [Colace -] 100 mg PO Q8H PRN #0 capsule 11/07/15 Polyethylene Glycol 3350 [Miralax 119 gm Btl -] 17 gm PO BID bottle 11/07/15 This patient is new to me today: No Emergency Visit: Yes ED Registration Date: 12/28/17 Care time: The patient presented to the Emergency Department on the above date and was hospitalized for further evaluation of their emergent condition. Critical Care patient: No - Discharge Referral Referred to [facility] Yes Physician Referral: Gonzalo Ricks DO (GI)
== END 2017-12-30 17:00 | disposition home or self-care (01) ==
LOC: JER 08:36 → JERBED 13:59 → J4W 12-29 23:24
PROVIDERS: ADMIT Internal Medicine; ATTEND Internal Medicine
PROC: 3E03329 Introduction of Other Anti-infective into Peripheral Vein, Percutaneous Approach (ICD-10-PCS; principal; 2017-12-28)
PROC: 3E033NZ Introduction of Analgesics, Hypnotics, Sedatives into Peripheral Vein, Percutaneous Approach (ICD-10-PCS; 2017-12-28)
PROC: 3E033GC Introduction of Other Therapeutic Substance into Peripheral Vein, Percutaneous Approach (ICD-10-PCS; 2017-12-28)
PROC: 3E0337Z Introduction of Electrolytic and Water Balance Substance into Peripheral Vein, Percutaneous Approach (ICD-10-PCS; 2017-12-28)
PROC: 3E013GC Introduction of Other Therapeutic Substance into Subcutaneous Tissue, Percutaneous Approach (ICD-10-PCS; 2017-12-28)
DX: K57.92 Diverticulitis of intestine, part unspecified, without perforation or abscess without bleeding (principal); R77.8 Other specified abnormalities of plasma proteins; R10.31 Right lower quadrant pain; R10.9 Unspecified abdominal pain; K59.04 Chronic idiopathic constipation; N17.9 Acute kidney failure, unspecified; I11.0 Hypertensive heart disease with heart failure; I48.91 Unspecified atrial fibrillation; I50.9 Heart failure, unspecified; F17.210 Nicotine dependence, cigarettes, uncomplicated; E11.9 Type 2 diabetes mellitus without complications; F11.20 Opioid dependence, uncomplicated; N28.9 Disorder of kidney and ureter, unspecified; G47.30 Sleep apnea, unspecified; K56.609 Unspecified intestinal obstruction, unspecified as to partial versus complete obstruction; K43.6 Other and unspecified ventral hernia with obstruction, without gangrene; B18.2 Chronic viral hepatitis C; N40.0 Benign prostatic hyperplasia without lower urinary tract symptoms; E66.01 Morbid (severe) obesity due to excess calories; Z68.42 Body mass index [BMI] 45.0-49.9, adult; Z91.89 Other specified personal risk factors, not elsewhere classified; Z79.84 Long term (current) use of oral hypoglycemic drugs; Z88.0 Allergy status to penicillin
CPT/HCPCS: 36415; 74176-TC; 74177-TC; 80053; 82550; 82553; 82962; 83605; 83690; 83735; 84100; 84484; 85025; 85027; 85610; 85730; 86140; 93005; 93010; 93306-TC; 96365; 96367; 96372; 96375; 96376; 99285-25; G0378; J1644; J7030; Q0162

== ENCOUNTER 2022-02-25 04:07 | Inpatient (IN) | payer OTHER ==
[2022-02-20 15:55] VITALS: BMI 47.5
[2022-02-25] MEDS ORDERED: FENTANYL CITRATE/PF 50 MCG/ML VIAL ONE (08:45)
[2022-02-25] MEDS ORDERED: PROPOFOL 20 ML ONE (09:08)
[2022-02-25 11:10] VITALS: RESP 20
[2022-02-25] MEDS ORDERED: IPRATROPIUM BR 0.02% 0.5 MG/2.5 ML VIAL.NEB. NEB ONE (12:09)
[2022-02-25] MEDS ORDERED: FUROSEMIDE 40 MG/4 ML INJECTABLE VIAL IVPUSH ONE (15:32)
[2022-02-25] MEDS ORDERED: FUROSEMIDE 40 MG/4 ML INJECTABLE VIAL ONE (16:19)
[2022-02-25] MEDS: INSULIN SLIDING SCALE (NOVOLOG) 1 VIAL SQ SCH (22:53)
[2022-02-25] MEDS: CARVEDILOL 25 MG TABLET (FP) PO SCH (22:54)
[2022-02-26] MEDS: INSULIN SLIDING SCALE (NOVOLOG) 1 VIAL SQ SCH ×4 (06:32→21:32)
[2022-02-26] MEDS: TAMSULOSIN HCL 0.4 MG CAP PO SCH (09:11)
[2022-02-26] MEDS: CARVEDILOL 25 MG TABLET (FP) PO SCH ×2 (09:12→21:33)
[2022-02-26] MEDS ORDERED: FUROSEMIDE 40 MG/4 ML INJECTABLE VIAL IVPUSH SCH (10:00)
[2022-02-26] MEDS ORDERED: FLU VACC QS2022-23(6MOS UP)/PF 60 MCG/0.5 ML SYRINGE IM ONE (10:00)
[2022-02-26] MEDS ORDERED: PNEUMOC 20-VAL CONJ-DIP CRM/PF 0.5 ML SYRINGE IM ONE (10:00)
[2022-02-26] MEDS ORDERED: PNEUMOC 13-VAL CONJ-DIP CRM/PF 0.5 ML DISP.SYRIN IM ONE (10:00)
[2022-02-26] MEDS ORDERED: morphine CARPU-JECT 4 MG/1 ML DISP.SYRIN IVPUSH ONE (10:28)
[2022-02-26 12:28] LABS: ARTERIAL BLD GAS O2 SATURATION 91.6 % (95-98); ARTERIAL BLOOD GAS BASE EXCESS 6.9 mmol/L (-2-2); ARTERIAL BLOOD GAS PO2 60.8 mmHg (80-100); ARTERIAL BLOOD GAS pH 7.428 (7.350-7.450)
[2022-02-26 12:30] LABS: ALLENS TEST POSITIVE
[2022-02-26] MEDS ORDERED: DOCUSATE SODIUM 100 MG CAPSULE (FP) PO PRN (13:35)
[2022-02-26] MEDS ORDERED: oxyCODONE HCL 5 MG TABLET PO PRN (13:35)
[2022-02-26 15:34] LABS: HEMATOCRIT 27.3 % (35.4-49); HEMOGLOBIN 8.1 GM/dL (11.7-16.9); MCH 21.2 pg (25.7-33.7); MCHC 29.7 g/dl (32.0-35.9); MEAN CELL VOLUME 71.3 fl (80-96); MEAN PLT VOLUME 8.3 fl (7.5-11.1); PLATELET COUNT 134 10^3/uL (134-434); RBC 3.83 M/mm3 (4.00-5.60); RDW 18.5 % (11.9-15.9)
[2022-02-26 15:44] LABS: BLOOD UREA NITROGEN 22.8 mg/dL (7-18); CALCIUM 8.2 mg/dL (8.5-10.1)
[2022-02-26 15:47] LABS: CREATININE 0.9 mg/dL (0.55-1.3); PHOSPHOROUS 2.1 mg/dL (2.5-4.9)
[2022-02-26 15:49] LABS: CHOLESTEROL 112 mg/dL (50-200); TRIGLYCERIDES 74 mg/dL (0-150)
[2022-02-26 15:50] LABS: LDL CHOLESTEROL (ONLY SJRH) 55 mg/dL (5-100)
[2022-02-26 15:52] LABS: HDL CHOLESTEROL 44 mg/dL (40-60)
[2022-02-26 15:54] LABS: ANISOCYTOSIS 3+; MACROCYTOSIS 0; PLATELET ESTIMATE DECREASED
[2022-02-26] MEDS ORDERED: RIVAROXABAN 20 MG TABLET PO SCH (18:00)
[2022-02-26] MEDS: PREGABALIN 75 MG CAPSULE PO SCH ×2 (20:51→21:33)
[2022-02-26 20:59] LABS: N-TERMINAL BNP 111.2 pg/ml (5-125)
[2022-02-27] MEDS: PREGABALIN 75 MG CAPSULE PO SCH ×3 (05:54→09:23)
[2022-02-27] MEDS: INSULIN SLIDING SCALE (NOVOLOG) 1 VIAL SQ SCH (06:32)
[2022-02-27] MEDS: TAMSULOSIN HCL 0.4 MG CAP PO SCH (09:22)
[2022-02-27] MEDS: CARVEDILOL 25 MG TABLET (FP) PO SCH (09:23)
[2022-02-27 11:43] VITALS: BP 119/65; PULSE 96; TEMP 97.8
== END 2022-02-27 11:22 | disposition home or self-care (01) | DRG 206 ==
LOC: JASU-SURG 04:07 → J2C 15:27 → J5S 21:38
PROVIDERS: ADMIT Urology; ATTEND Internal Medicine
PROC: 0TF4XZZ Fragmentation in Left Kidney Pelvis, External Approach (ICD-10-PCS; principal; 2022-02-25 08:30)
DX: J95.89 Other postprocedural complications and disorders of respiratory system, not elsewhere classified (principal); J98.11 Atelectasis; Z68.42 Body mass index [BMI] 45.0-49.9, adult; J96.12 Chronic respiratory failure with hypercapnia; N20.0 Calculus of kidney; R09.02 Hypoxemia; G47.30 Sleep apnea, unspecified; I10 Essential (primary) hypertension; D64.9 Anemia, unspecified; E66.01 Morbid (severe) obesity due to excess calories; M51.27 Other intervertebral disc displacement, lumbosacral region; I48.0 Paroxysmal atrial fibrillation; E11.9 Type 2 diabetes mellitus without complications; K59.00 Constipation, unspecified; Y83.8 Other surgical procedures as the cause of abnormal reaction of the patient, or of later complication, without mention of misadventure at the time of the procedure
CPT/HCPCS: 36415; 36600; 71045-TC-FY; 80048; 80061; 82728; 82803; 82962; 83036; 83540; 83550; 83735; 83880; 84100; 84443; 85025; 87804; 93005; 93010; 93306-TC; 94660; 94760; 94761; 97116-GP; 97162-GP

== ENCOUNTER 2023-08-11 04:21 | Day surgery (SDC) | payer OTHER ==
[2023-08-07 09:15] VITALS: BMI 48.7
[2023-08-11] MEDS ORDERED: FENTANYL CITRATE/PF 50 MCG/ML VIAL ONE (09:24)
[2023-08-11] MEDS ORDERED: MIDAZOLAM HCL 2 MG/2 ML SINGLE DOSE VIAL ONE (09:24)
[2023-08-11 11:18] VITALS: BP 127/76; PULSE 80; RESP 18; TEMP 97
== END 2023-08-11 11:40 | disposition home or self-care (01) ==
LOC: JASU-SURG 04:21
PROVIDERS: ATTEND Urology
PROC: 0TF4XZZ Fragmentation in Left Kidney Pelvis, External Approach (ICD-10-PCS; principal; 2023-08-11 09:00)
DX: N20.0 Calculus of kidney (principal)
CPT/HCPCS: 82962

== ENCOUNTER 2023-10-06 04:40 | Day surgery (SDC) | payer OTHER ==
[2023-09-29 10:13] VITALS: BMI 48.7
[2023-10-06 09:03] VITALS: TEMP 98.6
[2023-10-06] MEDS ORDERED: MIDAZOLAM HCL 2 MG/2 ML SINGLE DOSE VIAL ONE ×2 (10:27→10:46)
[2023-10-06] MEDS ORDERED: PROPOFOL 20 ML ONE (10:42)
[2023-10-06 11:23] VITALS: BP 117/55; PULSE 86; RESP 19
== END 2023-10-06 12:23 | disposition home or self-care (01) ==
LOC: JASU-SURG 04:40
PROVIDERS: ATTEND Urology
PROC: 0TF4XZZ Fragmentation in Left Kidney Pelvis, External Approach (ICD-10-PCS; principal; 2023-10-06 10:30)
DX: N20.0 Calculus of kidney (principal)
CPT/HCPCS: 82962

== ENCOUNTER 2023-12-15 04:18 | Day surgery (SDC) | payer OTHER ==
[2023-12-09 17:24] VITALS: BMI 47.7
[2023-12-15 06:47] VITALS: RESP 20
[2023-12-15] MEDS ORDERED: ONDANSETRON 4 MG/2 ML VIAL ONE (08:38)
[2023-12-15] MEDS ORDERED: MIDAZOLAM HCL 2 MG/2 ML SINGLE DOSE VIAL ONE (08:39)
[2023-12-15 12:14] VITALS: TEMP 97.5
[2023-12-15 12:21] VITALS: BP 104/76; PULSE 90
== END 2023-12-15 11:45 | disposition home or self-care (01) ==
LOC: JASU-SURG 04:18
PROVIDERS: ATTEND Urology
PROC: 0TF4XZZ Fragmentation in Left Kidney Pelvis, External Approach (ICD-10-PCS; principal; 2023-12-15 09:34)
DX: N20.0 Calculus of kidney (principal)
CPT/HCPCS: 82962

== ENCOUNTER 2024-04-15 08:44 | Emergency (ER) | payer OTHER ==
[2024-04-15 08:57] VITALS: TEMP 98; BMI 48.7
[2024-04-15] MEDS ORDERED: TRANEXAMIC ACID 1000 MG/10 ML VIAL ONE (09:43)
[2024-04-15] MEDS: TRANEXAMIC ACID 1000 MG/10 ML VIAL IVPUSH ONE ×2 (09:46)
[2024-04-15 12:36] VITALS: BP 140/72; PULSE 80; RESP 17
== END 2024-04-15 11:10 | disposition home or self-care (01) ==
LOC: JER 08:44
PROC: 3E033GC Introduction of Other Therapeutic Substance into Peripheral Vein, Percutaneous Approach (ICD-10-PCS; principal; 2024-04-15)
DX: R04.0 Epistaxis (principal)
CPT/HCPCS: 99284-25